=== PATIENT | male | born 1970 | race American Indian/Alaskan Native ===

== ENCOUNTER 2017-08-22 12:13 | Emergency (ER) | payer MEDICARE, MEDICAID ==
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
[2017-08-22] MEDS ORDERED: Sodium Chloride 0.9% 10 ML Syringe FLUSH PRN (12:44)
[2017-08-22] MEDS ORDERED: Ondansetron 4 MG/2 ML SDV IV ONE ×2 (12:45→17:14)
[2017-08-22] MEDS ORDERED: HYDROmorphone 1 MG/ML Syringe IVPUSH ONE (12:45)
[2017-08-22] MEDS ORDERED: Sodium Chloride 0.9% 1,000 ML IV ONE ×3 (12:45→16:08)
[2017-08-22 13:30] LABS: ANION GAP 13.3; CHLORIDE,CL 103 mmol/L (101-111); SODIUM,NA 136 mmol/L (135-145)
[2017-08-22] MEDS ORDERED: Iopamidol 612 MG/ML 100 ML Bottle IVPUSH ONE (14:11)
--- NOTE | 2017-08-22 15:10 | CT ---
CLINICAL HISTORY: 46-year-old hypertensive 260 pound male abdominal pain, vomiting, bilirubin 5.6 and abnormally elevated white blood cell count (24,000) who has had previous appendectomy but no other k nown surgeries. SCAN TECHNIQUE: Volume acquisition of data from the abdomen and pelvis obtained without oral contrast but during the intravenous administration 100 cc nonionic Isovue contrast (2.5 cc/sec via injector) while the patient was lying supine on the Siemens multislice scanner [place], [place]. All data archived in the PACS system for storage, reformatting and study. INTERPRETATION: 1. Portal caval shunt and small scarred appearing liver (irregular margins). Normal spleen. No varice s. 2. Gallbladder unremarkable. No abnormal dilatation of intra or extrahepatic biliary ducts. Normal pa ncreas. 3. No abdominal or pelvic mass lesion, signs of mesenteric or retroperitoneal lymphadenopathy, inflam matory "dirty" peritoneal fat, mechanical bowel obstruction, ascites or free intraperitoneal air. 4. Inhomogeneously dense prostate gland extending in the base of the urinary bladder. 5. Normal reniform size, axis and configuration. No sign of renal cortical mass lesion, nephrolithias is or obstructive uropathy. 6. Normal caliber aortoiliac vessels. Normal cardiac silhouette. Lung bases clear. Lumbar spine unrem arkable. 7. Diverticula scattered along the course of descending left colon (without associated inflammatory c hanges). CONCLUSION: Portacaval shunt. No acute intraperitoneal abnormality. (No biliary duct dilatation or in traperitoneal infection)
[2017-08-22] MEDS ORDERED: cefTRIAXone 1 GM Vial IVPUSH ONE (17:13)
[2017-08-22] MEDS ORDERED: Ketorolac 30 MG/ML SDV IVPUSH ONE (17:14)
[2017-08-22 17:53] VITALS: BP 135/88
== END 2017-08-22 17:52 | disposition home or self-care (01) ==
LOC: DL.ED 12:13
DX: N12 Tubulo-interstitial nephritis, not specified as acute or chronic (principal); E86.0 Dehydration; N40.0 Benign prostatic hyperplasia without lower urinary tract symptoms; K21.9 Gastro-esophageal reflux disease without esophagitis; F17.210 Nicotine dependence, cigarettes, uncomplicated; Z79.899 Other long term (current) drug therapy
CPT/HCPCS: 36415; 74177; 80053; 81001; 82150; 83605; 83690; 85025; 87040; 87086; 87491; 87591; 96361; 96374; 96375; 96376; 99284; J0696; J1170; J1885; J2405; J7030; J7050; Q9967; 87088; 87186

== ENCOUNTER 2018-11-12 20:29 | Emergency (ER) | payer MEDICAID, MEDICARE ==
--- NOTE | 2018-11-12 21:48 | EDM.PDOC ---
ED HPI GENERAL MEDICAL PROBLEM - General Chief Complaint: Respiratory Problem Stated Complaint: BAD COUGH Time Seen by Provider: 11/12/18 22:53 Source of Information: Reports: Patient, RN, RN Notes Reviewed History Limitations: Reports: No Limitations - History of Present Illness INITIAL COMMENTS - FREE TEXT/NARRATIVE: Pt to ER with c/o cough that began yesterday. Pt states pain and burning in the chest with cough. Admits to fever, chills, chest pain with cough, SOB, and states he tires out easily with ambulation that began today. Denies N/V/D. States he has been seeing Shay Ty in the clinic, and has been referred to [facility] for "his lungs". Denies smoking. Admits to alcoholic liver cirrhosis. Onset: Gradual - Related Data Allergies Allergy/AdvReac Type Severity Reaction Status Date / Time No Known Allergies Allergy Verified 06/22/16 07:03 Home Meds: Home Meds Gabapentin [Neurontin] 300 mg PO DAILY 06/22/16 [History] Lactulose 10 gm PO DAILY 06/22/16 [History] Omeprazole 20 mg PO DAILY 06/22/16 [History] Spironolactone [Aldactone] 25 mg PO DAILY 06/22/16 [History] traMADol [Ultram] 50 mg PO DAILY 06/22/16 [History] Albuterol [Ventolin HFA] 18 gm INH Q6H 08/22/17 [History] Past Medical History HEENT History: Reports: Impaired Vision Gastrointestinal History: Reports: Cirrhosis, GERD, Hepatitis Musculoskeletal History: Reports: Back Pain, Chronic Neurological History: Reports: Neuropathy, Peripheral Psychiatric History: Reports: Anxiety Dermatologic History: Reports: Cellulitis - Past Surgical History GI Surgical History: Reports: Appendectomy, Other (See Below) Social & Family History - Family History Family Medical History: Noncontributory - Tobacco Use Smoking Status *Q: Never Smoker - Caffeine Use Caffeine Use: Reports: None - Recreational Drug Use Recreational Drug Use: No - Living Situation & Occupation Living situation: Reports: with Family Occupation: Unemployed ED ROS GENERAL - Review of Systems Review Of Systems: ROS reveals no pertinent complaints other than HPI. ED EXAM, GENERAL - Physical Exam Exam: See Below Exam Limited By: No Limitations General Appearance: Alert, WD/WN, No Apparent Distress Eye Exam: Bilateral Eye: EOMI, Normal Inspection Ears: Normal External Exam, Hearing Grossly Normal Nose: Normal Inspection Throat/Mouth: Normal Inspection, Normal Voice, No Airway Compromise Head: Atraumatic, Normocephalic Neck: Normal Inspection, Supple, Non-Tender, Full Range of Motion Respiratory/Chest: No Respiratory Distress, Decreased Breath Sounds, Wheezing ( Expiratory) Cardiovascular: Normal Peripheral Pulses, Regular Rate, Rhythm, No Edema, No Gallop, No JVD, No Murmur, No Rub Peripheral Pulses: 2+: Radial (L), Radial (R) GI/Abdominal: Normal Bowel Sounds, Soft, Non-Tender (Male) Exam: Deferred Rectal (Males) Exam: Deferred Back Exam: Normal Inspection, Full Range of Motion, NT Extremities: Normal Inspection, Normal Range of Motion, Non-Tender, Normal Capillary Refill, No Pedal Edema Neurological: Alert, Oriented, CN II-XII Intact, Normal Cognition, Normal Gait, Normal Reflexes, No Motor/Sensory Deficits Psychiatric: Normal Affect, Normal Mood Skin Exam: Warm, Dry, Intact, Normal Color, No Rash Lymphatic: No Adenopathy Course - Vital Signs Last Recorded V/S: Last Vital Signs Temp 99.2 F 11/12/18 22:44 Pulse 88 11/12/18 22:44 Resp 18 11/12/18 22:44 BP 142/65 H 11/12/18 22:44 Pulse Ox 94 L 11/12/18 22:44 - Orders/Labs/Meds Orders: Active Orders 24 hr Category Date Time Status EKG Documentation Completion [RC] STAT Care 11/12/18 22:30 Active Peripheral IV Care [RC] . DIRECTED Care 11/12/18 22:30 Active CULTURE BLOOD [BC] Stat Lab 11/12/18 22:40 Received CULTURE BLOOD [BC] Stat Lab 11/12/18 23:00 Results Blood Culture x2 Reflex Set [OM.PC] Stat Oth 11/12/18 22:30 Ordered Peripheral IV Insertion Adult [OM.PC] Stat Oth 11/12/18 22:30 Ordered Labs: Laboratory Tests 11/12/18 11/12/18 11/12/18 Range/Units 22:40 22:40 22:40 WBC 6.1 (5.0-10.0) 10^3/uL RBC 5.58 (4.6-6.2) 10^6/uL Hgb 17.3 (14.0-18.0) g/dL Hct 50.8 (40.0-54.0) % MCV 91.0 (80-100) fL MCH 31.0 (27.0-34.0) pg MCHC 34.1 (33.0-35.0) g/dL Plt Count 78 L (150-450) 10^3/uL Neut % (Auto) 63.3 (42.2-75.2) % Lymph % (Auto) 19.4 L (20.5-50.1) % [facility] % (Auto) 15.7 H (2-8) % Eos % (Auto) 0.8 L (1.0-3.0) % Baso % (Auto) 0.8 (0.0-1.0) % Sodium 136 (135-145) mmol/L Potassium 3.4 L (3.6-5.0) mmol/L Chloride 107 (101-111) mmol/L Carbon Dioxide 18.0 L (21.0-31.0) mmol/L Anion Gap 14.4 BUN 6 L (7-18) mg/dL Creatinine 0.8 (0.6-1.3) mg/dL Est Cr Clr Drug Dosing 137.90 mL/min Estimated GFR (MDRD) > 60 BUN/Creatinine Ratio 7.50 Glucose 113 H (74-105) mg/dL Lactic Acid 1.5 (0.5-2.2) mmol/L Calcium 8.5 (8.4-10.2) mg/dl Total Bilirubin 2.4 H (0.2-1.0) mg/dL AST 39 (10-42) IU/L ALT 21 (10-60) IU/L Alkaline Phosphatase 94 (42-121) IU/L Troponin I 0.02 (0.00-0.02) ng/ml B-Natriuretic Peptide 31 (0-100) pg/ml Total Protein 7.7 (6.7-8.2) g/dl Albumin 3.9 (3.2-5.5) g/dl Globulin 3.8 Albumin/Globulin Ratio 1.03 Meds: Medications Discontinued Medications Generic Name Dose Route Start Last Admin Trade Name Freq PRN Reason Stop Dose Admin Furosemide 40 mg 11/13/18 00:45 11/13/18 00:52 Lasix IVPUSH 11/13/18 00:46 40 mg NOW ONE Administration Iopamidol 75 ml 11/12/18 23:18 11/12/18 23:50 Isovue-300 (61%) IVPUSH 11/12/18 23:19 73 ml ONETIME ONE Administration Sodium Chloride 10 ml 11/12/18 22:30 11/12/18 22:47 Saline Flush FLUSH 10 ml ASDIRECTED PRN Administration Keep Vein Open - Radiology Interpretation Free Text/Narrative:: Chest xray: FINDINGS: Lungs: Unremarkable. No consolidation. Pleural space: Unremarkable. No pleural effusion. No pneumothorax. Heart/Mediastinum: There is fullness in the aortopulmonary window region and mamadou. Bones/joints: Unremarkable. IMPRESSION: Suspect enlarged central arteries. Pulmonary arterial hypertension is suspected. CT of the chest could further characterize as well as exclude adenopathy. Thank you for allowing us to participate in the care of your patient. Dictated and Authenticated by: Salomón Villasenor MD 11/12/2018 9:25 PM Central Time ([place] & [place]) Chest CT: FINDINGS: Lungs: No interstitial infiltrate. No consolidation. No masses. Pleural space: No pneumothorax. No pleural effusion. Heart: Atherosclerotic calcification of of the coronary arteries. No cardiomegaly. No pericardial effusion. Pulmonary arteries: Enlargement of the main pulmonary artery consistent with pulmonary arterial hypertension. Aorta: Normal. No aortic aneurysm. Lymph nodes: Unremarkable. No enlarged lymph nodes. Bones/joints: No acute fracture. Soft tissues: Unremarkable. Liver: Liver cirrhosis with TIPS shunt. IMPRESSION: 1. No acute intrathoracic finding. 2. Pulmonary arterial hypertension. 3. Liver cirrhosis with TIPS shunt. Thank you for allowing us to participate in the care of your patient. Dictated and Authenticated by: Yanelis Macario MD 11/13/2018 12:31 AM Central Time ([place] & [place]) See rad report Departure - Departure Time of Disposition: 00:39 Disposition: Home, Self-Care 01 Condition: Fair Clinical Impression: Pulmonary hypertension, Cough - Discharge Information *PRESCRIPTION DRUG MONITORING PROGRAM REVIEWED*: No *COPY OF PRESCRIPTION DRUG MONITORING REPORT IN PATIENT [place]: No Instructions: Pulmonary Hypertension Referrals: PCP,None [Primary Care Provider] - Forms: ED Department Discharge Additional Instructions: Call your primary care provider in the morning to follow up - My Orders Last 24 Hours: My Active Orders 11/12/18 22:30 EKG Documentation Completion [RC] STAT Peripheral IV Care [RC] . DIRECTED Blood Culture x2 Reflex Set [OM.PC] Stat Peripheral IV Insertion Adult [OM.PC] Stat 11/12/18 22:40 CULTURE BLOOD [BC] Stat 11/12/18 23:00 CULTURE BLOOD [BC] Stat - Assessment/Plan Last 24 Hours: My Active Orders 11/12/18 22:30 EKG Documentation Completion [RC] STAT Peripheral IV Care [RC] . DIRECTED Blood Culture x2 Reflex Set [OM.PC] Stat Peripheral IV Insertion Adult [OM.PC] Stat 11/12/18 22:40 CULTURE BLOOD [BC] Stat 11/12/18 23:00 CULTURE BLOOD [BC] Stat
[2018-11-12] MEDS ORDERED: Sodium Chloride 0.9% 10 ML Syringe FLUSH PRN (22:30)
[2018-11-12 22:45] VITALS: BP 142/65
[2018-11-12 23:13] LABS: ANION GAP 14.4; CHLORIDE,CL 107 mmol/L (101-111); SODIUM,NA 136 mmol/L (135-145)
[2018-11-12] MEDS ORDERED: Iopamidol 612 MG/ML 75 ML Bottle IVPUSH ONE (23:18)
[2018-11-13] MEDS ORDERED: Furosemide 40 MG/4 ML VIAL IVPUSH ONE (00:45)
== END 2018-11-13 00:58 | disposition home or self-care (01) ==
LOC: DL.ED 20:29
DX: I27.20 Pulmonary hypertension, unspecified (principal); R05 Cough; F41.9 Anxiety disorder, unspecified; Z79.899 Other long term (current) drug therapy
CPT/HCPCS: 36415; 71046; 71260; 80053; 83605; 83880; 84484; 85025; 87040; 93005; 96374; 99284; J1940; Q9967

== ENCOUNTER 2020-02-05 16:59 | Emergency (ER) | payer MEDICARE, MEDICAID ==
[2020-02-05 17:12] VITALS: BP 143/75; PULSE 90
--- NOTE | 2020-02-05 17:23 | EDM.PDOC ---
ED HPI GENERAL MEDICAL PROBLEM - General Stated Complaint: UNK Time Seen by Provider: 02/05/20 17:15 Source of Information: Reports: Patient History Limitations: Reports: No Limitations - History of Present Illness INITIAL COMMENTS - FREE TEXT/NARRATIVE: This 49 yo male patient reports to the ED with increased lower abdominal pain and bilateral lower back pain and pressure. The patient described his pain as an increasing pressure throughout his abdomen. The patient reports he has not been able to urinate since about [id number] this morning. The patient was seen in the [facility], but sent to the ED. Onset: Today Onset Date: 02/05/20 Duration: Constant, Getting Worse Location: Reports: Abdomen, Back Quality: Reports: Ache, Pressure Severity: Moderate Improves with: Reports: None Worsens with: Reports: None Context: Reports: Other Associated Symptoms: Reports: No Other Symptoms Bilateral Lower Back Pain Score (Numeric/FACES): 7 - Related Data Allergies Allergy/AdvReac Type Severity Reaction Status Date / Time No Known Allergies Allergy Verified 02/05/20 17:03 Home Meds: Home Meds Gabapentin [Neurontin] 300 mg PO DAILY 06/22/16 [History] Lactulose 10 gm PO DAILY 06/22/16 [History] Omeprazole 20 mg PO DAILY 06/22/16 [History] Spironolactone [Aldactone] 25 mg PO DAILY 06/22/16 [History] Albuterol [Ventolin HFA] 18 gm INH Q6H 08/22/17 [History] Past Medical History HEENT History: Reports: Impaired Vision Gastrointestinal History: Reports: Cirrhosis, GERD, Hepatitis Musculoskeletal History: Reports: Back Pain, Chronic Neurological History: Reports: Neuropathy, Peripheral Psychiatric History: Reports: Anxiety Dermatologic History: Reports: Cellulitis - Past Surgical History GI Surgical History: Reports: Appendectomy, Other (See Below) Social & Family History - Family History Family Medical History: Noncontributory - Caffeine Use Caffeine Use: Reports: None - Living Situation & Occupation Living situation: Reports: with Family Occupation: Unemployed ED ROS GENERAL - Review of Systems Review Of Systems: Comprehensive ROS is negative, except as noted in HPI. ED EXAM, RENAL/ - Physical Exam Exam: See Below Exam Limited By: No Limitations General Appearance: Alert, WD/WN, Moderate Distress Eye Exam: Bilateral Eye: EOMI, Normal Inspection, PERRL Ears: Normal External Exam, Normal Canal, Hearing Grossly Normal, Normal TMs Nose: Normal Inspection, Normal Mucosa, No Blood Throat/Mouth: Normal Inspection, Normal Lips, Normal Teeth, Normal Gums, Normal Oropharynx, Normal Voice, No Airway Compromise Head: Atraumatic, Normocephalic Neck: Normal Inspection, Supple, Non-Tender, Full Range of Motion Respiratory/Chest: No Respiratory Distress, Lungs Clear, Normal Breath Sounds, No Accessory Muscle Use, Chest Non-Tender Cardiovascular: Normal Peripheral Pulses GI/Abdominal: Normal Bowel Sounds, Tender (lower abdomen) (Male) Exam: Deferred Rectal (Males) Exam: Deferred Back Exam: CVA Tenderness (R) Extremities: Normal Inspection, Normal Range of Motion, Non-Tender, Normal Capillary Refill, No Pedal Edema Neurological: Alert, Oriented, CN II-XII Intact, Normal Cognition, Normal Gait, Normal Reflexes, No Motor/Sensory Deficits Psychiatric: Normal Affect, Normal Mood Skin Exam: Warm, Dry, Intact, Normal Color, No Rash Lymphatic: No Adenopathy Course - Vital Signs Last Recorded V/S: Last Vital Signs Temp 37.2 C 02/05/20 17:07 Pulse 90 02/05/20 17:07 Resp 20 02/05/20 17:07 BP 143/75 H 02/05/20 17:07 Pulse Ox 97 02/05/20 17:07 - Orders/Labs/Meds Labs: Laboratory Tests 02/05/20 02/05/20 02/05/20 Range/Units 17:31 17:42 17:42 WBC 9.5 (5.0-10.0) 10^3/uL RBC 5.23 (4.6-6.2) 10^6/uL Hgb 16.6 (14.0-18.0) g/dL Hct 48.7 (40.0-54.0) % MCV 93.1 (80-100) fL MCH 31.7 (27.0-34.0) pg MCHC 34.1 (33.0-35.0) g/dL Plt Count 75 L (150-450) 10^3/uL Neut % (Auto) 84.5 H (42.2-75.2) % Lymph % (Auto) 5.9 L (20.5-50.1) % [place] % (Auto) 9.3 H (2-8) % Eos % (Auto) 0.0 L (1.0-3.0) % Baso % (Auto) 0.3 (0.0-1.0) % Sodium 135 L (136-145) mmol/L Potassium 3.5 (3.5-5.1) mmol/L Chloride 103 (98-107) mmol/L Carbon Dioxide 22 (21-32) mmol/L Anion Gap 13.5 H (7-13) mEq/L BUN 10 (7-18) mg/dL Creatinine 1.02 (0.70-1.30) mg/dL Est Cr Clr Drug Dosing 107.01 mL/min Estimated GFR (MDRD) > 60 BUN/Creatinine Ratio 9.8 (No establ ref range) Glucose 107 H (74-99) mg/dL Calcium 8.3 L (8.5-10.1) mg/dL Total Bilirubin 2.8 H (0.2-1.0) mg/dL AST 29 (15-37) U/L ALT 23 (16-63) U/L Alkaline Phosphatase 92 (46-116) U/L Total Protein 7.2 (6.4-8.2) g/dL Albumin 3.4 (3.4-5.0) g/dL Globulin 3.8 Albumin/Globulin Ratio 0.9 Urine Color Dark yellow (YELLOW) Urine Appearance Cloudy (CLEAR) Urine pH 6.0 (5.0-9.0) Ur Specific [place] 1.025 (1.005-1.030) Urine Protein 30 H (NEGATIVE) Urine Glucose (UA) Negative (NEGATIVE) Urine Ketones 15 H (NEGATIVE) Urine Occult Blood Trace-intact H (NEGATIVE) Urine Nitrite Negative (NEGATIVE) Urine Bilirubin Negative (NEGATIVE) Urine Urobilinogen 4.0 H (0.2-1.0) mg/dL Ur Leukocyte Esterase Negative (NEGATIVE) Urine RBC 5-10 H /HPF Urine WBC 0-5 (0-5/HPF) /HPF Ur Epithelial Cells Few (NOT SEEN) /HPF Amorphous Sediment Few (NOT SEEN) /HPF Urine Bacteria Rare (0-FEW/HPF) /HPF Urine Mucus Moderate H (NOT SEEN) /LPF - Re-Assessments/Exams Free Text/Narrative Re-Assessment/Exam: 02/05/20 18:14 The patient reports symptom relief after catheter. Departure - Departure Time of Disposition: 18:14 Disposition: Home, Self-Care 01 Condition: Fair Clinical Impression: Urinary obstruction - Discharge Information *PRESCRIPTION DRUG MONITORING PROGRAM REVIEWED*: Not Applicable *COPY OF PRESCRIPTION DRUG MONITORING REPORT IN PATIENT [place]: Not Applicable Care Plan Goals: The patient and family were advised of the examination and lab results during the visit. A catheter was placed to relieve pressure with symptom improvement during visit. The patient was encouraged to attempt to urinate every 1-2 hours over the next 24 hours. If the patient has any additional symptoms or concerns, the patient should either return to the emergency department or visit his primary care facility. Sepsis Event Note (ED) - Evaluation Sepsis Screening Result: No Definite Risk - Focused Exam Vital Signs: Vital Signs Temp Pulse Resp BP Pulse Ox 02/05/20 17:07 37.2 C 90 20 143/75 H 97
[2020-02-05 18:12] LABS: ANION GAP 13.5 mEq/L (7-13); CHLORIDE,CL 103 mmol/L (98-107); SODIUM,NA 135 mmol/L (136-145)
== END 2020-02-05 18:20 | disposition home or self-care (01) ==
LOC: DL.ED 16:59
DX: N13.9 Obstructive and reflux uropathy, unspecified (principal); K21.9 Gastro-esophageal reflux disease without esophagitis; G62.9 Polyneuropathy, unspecified; Z79.899 Other long term (current) drug therapy
CPT/HCPCS: 36415; 51702; 80053; 81001; 85025; 99283; 99284

== ENCOUNTER 2020-05-10 20:02 | Emergency (ER) | payer MEDICARE, MEDICAID, OTHER ==
[2020-05-10 20:14] VITALS: BP 125/79; PULSE 99
--- NOTE | 2020-05-10 20:24 | EDM.PDOC ---
ED HPI GENERAL MEDICAL PROBLEM - General Chief Complaint: Respiratory Problem Stated Complaint: AMBULANCE Time Seen by Provider: 05/10/20 20:22 Source of Information: Reports: Patient History Limitations: Reports: No Limitations - History of Present Illness INITIAL COMMENTS - FREE TEXT/NARRATIVE: positive covid 5 days ago, started chest tightness on deep breathing and SOB. Mid-Sternal Chest Pain Score (Numeric/FACES): 3 - Related Data Allergies Allergy/AdvReac Type Severity Reaction Status Date / Time No Known Allergies Allergy Verified 02/05/20 17:03 Home Meds: Home Meds Gabapentin [Neurontin] 300 mg PO DAILY 06/22/16 [History] Lactulose 10 gm PO DAILY 06/22/16 [History] Omeprazole 20 mg PO DAILY 06/22/16 [History] Spironolactone [Aldactone] 25 mg PO DAILY 06/22/16 [History] Albuterol [Ventolin HFA] 18 gm INH Q6H 08/22/17 [History] Past Medical History HEENT History: Reports: Impaired Vision Cardiovascular History: Reports: None Respiratory History: Reports: COPD Gastrointestinal History: Reports: Cirrhosis, GERD, Hepatitis Genitourinary History: Reports: Prostate Disorder Musculoskeletal History: Reports: Back Pain, Chronic Neurological History: Reports: Neuropathy, Peripheral Psychiatric History: Reports: Anxiety Endocrine/Metabolic History: Reports: None Hematologic History: Reports: None Immunologic History: Reports: None Oncologic (Cancer) History: Reports: None Dermatologic History: Reports: Cellulitis - Infectious Disease History Infectious Disease History: Reports: Novel Coronavirus - Past Surgical History Head Surgeries/Procedures: Reports: None GI Surgical History: Reports: Appendectomy, Other (See Below) Social & Family History - Family History Family Medical History: Noncontributory - Tobacco Use Smoking Status *Q: Never Smoker Second Hand Smoke Exposure: No - Caffeine Use Caffeine Use: Reports: None - Recreational Drug Use Recreational Drug Use: No - Living Situation & Occupation Living situation: Reports: with Family Occupation: Unemployed ED ROS GENERAL - Review of Systems Review Of Systems: Comprehensive ROS is negative, except as noted in HPI. ED EXAM, GENERAL - Physical Exam Exam: See Below Exam Limited By: No Limitations General Appearance: Alert, WD/WN, Mild Distress, Other (discomfort) Ears: Hearing Grossly Normal Throat/Mouth: Normal Voice, No Airway Compromise Head: Atraumatic Neck: Non-Tender, Full Range of Motion Respiratory/Chest: No Respiratory Distress Cardiovascular: Regular Rate, Rhythm GI/Abdominal: Soft, Pelvis Stable (Male) Exam: Deferred Rectal (Males) Exam: Deferred Neurological: Alert, Oriented, Normal Cognition, No Motor/Sensory Deficits Psychiatric: Flat Affect Skin Exam: Warm, Dry, Normal Color Lymphatic: No Adenopathy Course - Vital Signs Last Recorded V/S: Last Vital Signs Temp 37.2 C 05/10/20 20:02 Pulse 99 05/10/20 20:02 Resp 18 05/10/20 20:02 BP 125/79 05/10/20 20:02 Pulse Ox - Orders/Labs/Meds Orders: Active Orders 24 hr Category Date Time Status CULTURE BLOOD [BC] Stat Lab 05/10/20 20:35 Received Azithromycin [Zithromax] Med 05/10/20 21:28 Once 500 mg PO ONETIME ONE predniSONE Med 05/10/20 21:28 Once 20 mg PO ONETIME ONE Labs: Laboratory Tests 05/10/20 05/10/20 05/10/20 Range/Units 20:35 20:35 20:35 WBC 7.6 (5.0-10.0) 10^3/uL RBC 5.33 (4.6-6.2) 10^6/uL Hgb 17.1 (14.0-18.0) g/dL Hct 48.3 (40.0-54.0) % MCV 90.6 (80-100) fL MCH 32.1 (27.0-34.0) pg MCHC 35.4 H (33.0-35.0) g/dL Plt Count 36 L* (150-450) 10^3/uL Neut % (Auto) 77.8 H (42.2-75.2) % Lymph % (Auto) 11.5 L (20.5-50.1) % [place] % (Auto) 10.2 H (2-8) % Eos % (Auto) 0.4 L (1.0-3.0) % Baso % (Auto) 0.1 (0.0-1.0) % Sodium 136 (136-145) mmol/L Potassium 3.4 L (3.5-5.1) mmol/L Chloride 103 (98-107) mmol/L Carbon Dioxide 22 (21-32) mmol/L Anion Gap 14.4 H (7-13) mEq/L BUN 7 (7-18) mg/dL Creatinine 0.75 (0.70-1.30) mg/dL Est Cr Clr Drug Dosing 145.53 mL/min Estimated GFR (MDRD) > 60 BUN/Creatinine Ratio 9.3 (No establ ref range) Glucose 89 (74-99) mg/dL Lactic Acid 1.2 (0.4-2.0) mmol/L Calcium 8.0 L (8.5-10.1) mg/dL Total Bilirubin 2.6 H (0.2-1.0) mg/dL AST 54 H (15-37) U/L ALT 43 (16-63) U/L Alkaline Phosphatase 109 (46-116) U/L Troponin I < 0.017 (0.000-0.056) ng/mL Total Protein 6.9 (6.4-8.2) g/dL Albumin 3.1 L (3.4-5.0) g/dL Globulin 3.8 Albumin/Globulin Ratio 0.82 Meds: Medications Discontinued Medications Generic Name Dose Route Start Last Admin Trade Name Freq PRN Reason Stop Dose Admin Azithromycin 500 mg 05/10/20 21:28 Zithromax PO 05/10/20 21:29 ONETIME ONE Prednisone 20 mg 05/10/20 21:28 Prednisone PO 05/10/20 21:29 ONETIME ONE - Re-Assessments/Exams Free Text/Narrative Re-Assessment/Exam: 05/10/20 21:30 results discussed with pt Departure - Departure Time of Disposition: 21:30 Disposition: Home, Self-Care 01 Condition: Good Clinical Impression: COVID-19 Pneumonia Qualifiers: Pneumonia type: due to unspecified organism Laterality: bilateral Lung locati on: unspecified part of lung Qualified Code(s): J18.9 - Pneumonia, unspecified organism - Discharge Information Instructions: COVID-19 Frequently Asked Questions Forms: ED Department Discharge Additional Instructions: 1) self quarantine next 2 weeks 2) take tylenol or motrin as needed for fever 3) follow up at clinic rx given; z-shoshana medrol dospak Sepsis Event Note (ED) - Evaluation Sepsis Screening Result: No Definite Risk - Focused Exam Vital Signs: Vital Signs Temp Pulse Resp BP 05/10/20 20:02 37.2 C 99 18 125/79 - My Orders Last 24 Hours: My Active Orders 05/10/20 20:35 CULTURE BLOOD [BC] Stat 05/10/20 21:28 Azithromycin [Zithromax] 500 mg PO ONETIME ONE predniSONE 20 mg PO ONETIME ONE - Assessment/Plan Last 24 Hours: My Active Orders 05/10/20 20:35 CULTURE BLOOD [BC] Stat 05/10/20 21:28 Azithromycin [Zithromax] 500 mg PO ONETIME ONE predniSONE 20 mg PO ONETIME ONE
[2020-05-10 21:01] LABS: ANION GAP 14.4 mEq/L (7-13); CHLORIDE,CL 103 mmol/L (98-107); SODIUM,NA 136 mmol/L (136-145)
--- NOTE | 2020-05-10 21:19 | CT ---
PROCEDURE INFORMATION: Exam: CT Chest Without Contrast Exam date and time: 05/10/2020 8:35 PM Age: 49 years old Clinical indication: Other: Chest pain; Additional info: Covid positive, SOB chest pain TECHNIQUE: Imaging protocol: Computed tomography of the chest without contrast. Radiation optimization: All CT scans at this facility use at least one of these dose optimization techniques: automated exposure control; mA and/or kV adjustment per patient size (includes targeted exams where dose is matched to clinical indication); or iterative reconstruction. COMPARISON: CT Chest w Cont 11/12/2018 11:34 PM FINDINGS: Lungs: Multifocal bilateral ground-glass densities, some of them peripheral, some of them rounded. Some crazy paving is present. There are no suspicious pulmonary nodules or areas of lung consolidation. Pleural space: There is no significant effusion. No pneumothorax. No mass, plaque or calcification. Heart: There are atherosclerotic calcifications inclusive of the coronary arteries. Pulmonary arteries: There is central prominance of the pulmonary arterial tree consistent with longstanding pulmonary artery hypertension. Aorta: No aortic aneurysm. Lymph nodes: No enlarged axillary, mediastinal, or hilar lymph nodes. Bones/joints: Age appropriate. No acute fracture. No suspicious lytic or osteosclerotic lesions. Soft tissues: Unremarkable. Other findings: TIPS is present. IMPRESSION: 1. Signs of chronic pulmonary artery hypertension. 2. CT findings consistent with given diagnosis of COVID-19 pneumonia.
[2020-05-10] MEDS ORDERED: Azithromycin 250 MG Tab PO ONE (21:28)
[2020-05-10] MEDS ORDERED: predniSONE 20 MG Tab PO ONE (21:28)
== END 2020-05-10 21:40 | disposition home or self-care (01) ==
LOC: DL.ED 20:02
DX: U07.1 COVID-19 (principal); J12.89 Other viral pneumonia; J44.9 Chronic obstructive pulmonary disease, unspecified; K21.9 Gastro-esophageal reflux disease without esophagitis; G62.9 Polyneuropathy, unspecified
CPT/HCPCS: 36415; 71250; 80053; 83605; 84484; 85025; 87040; 99285; A9270; J7512

== ENCOUNTER 2020-05-12 10:03 | Inpatient (IN) | payer MEDICARE, MEDICAID, OTHER ==
[2020-05-12] MEDS ORDERED: Albuterol/Ipratropium 3.0-0.5 MG/3 ML Neb Soln NEB ONE (10:21)
[2020-05-12 11:06] LABS: ANION GAP 14.9 mEq/L (7-13); CHLORIDE,CL 103 mmol/L (98-107); SODIUM,NA 136 mmol/L (136-145)
[2020-05-12] MEDS ORDERED: Ondansetron 4 MG Tab.DIS PO PRN (12:14)
[2020-05-12] MEDS ORDERED: Acetaminophen 325 MG Tab PO PRN (12:14)
[2020-05-12] MEDS ORDERED: Docusate Sodium 100 MG Cap PO PRN (12:14)
[2020-05-12] MEDS ORDERED: Albuterol/Ipratropium 3.0-0.5 MG/3 ML Neb Soln NEB SCH (13:00)
[2020-05-12] MEDS: Sodium Chloride 0.9% 1,000 ML IV SCH (13:44)
[2020-05-12] MEDS: cefTRIAXone 1 GM in Sodium Chloride 0.9% 50 ML IV SCH (13:45)
--- NOTE | 2020-05-12 13:46 | HP ---
CHIEF COMPLAINT: Shortness of breath and hypoxemia. HISTORY OF PRESENT ILLNESS: The patient is a 49-year-old gentleman with past medical history of chronic obstructive pulmonary disease, liver cirrhosis, neuropathy, was admitted through the emergency room because of continued shortness of breath and now noted to be hypoxemic. The patient was diagnosed with COVID infection about a week ago. The patient was seen in the emergency room 2 days ago because of shortness of breath and some chest tightness with deep breathing, and he was ruled out for myocardial infarction and was noted to have COVID pneumonia, but oxygen saturation was still above 90, so he was discharged on Zithromax and prednisone, but the patient continued to have the shortness of breath. Now, the patient is a little bit hypoxemic with saturation in the 80s. Because of this, he was then admitted for further evaluation and management. The patient denies though any fever or chills, orthopnea, pedal edema, abdominal pain, headache, nor any other complaints. PAST MEDICAL HISTORY: Remarkable for neuropathy, liver cirrhosis, chronic obstructive pulmonary disease, thrombocytopenia, and anxiety. FAMILY HISTORY: Noncontributory. SOCIAL HISTORY: The patient is unemployed. 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 FAMILY HISTORY: Noncontributory. REVIEW OF SYSTEMS: As in HPI. The rest of the review of systems is negative. HOME MEDICATIONS: Gabapentin, lactulose, omeprazole, spironolactone, albuterol. ALLERGIES: No known drug allergies. PHYSICAL EXAMINATION: General: The patient is alert and oriented, very pleasant, not in any acute respiratory distress. Vital Signs: Blood pressure is 126/83, pulse of 102, respirations of 28, temperature of 98.4, saturation is 88% on 3 L per nasal cannula. SHEENT: Normocephalic. There is pink palpebral conjunctiva. Sclerae slightly icterus. NECK: No JVD. No lymphadenopathy. HEART: Regular rate and rhythm. No gallops. No rubs. LUNGS: Has coarse breath sounds bilaterally with diminished breath sounds on both bases, but no significant wheezing or crackles. ABDOMEN: Moderately obese, soft, nontender. Bowel sounds positive. EXTREMITIES: Negative for any pedal edema. No calf tenderness. LABORATORY DATA: CBC: WBC is 8.5, hemoglobin is 7.3, hematocrit is 48.4, platelets 49, neutrophils is 84, bands 1. D-dimer is 264, which is within normal limits. Comp panel, anion gap is 14.9, glucose is 111, total bilirubin of 2.8, AST of 51. The rest of the panel unremarkable. CAT scan of the chest that was done on May 10, 2020, showed ground glass density bilaterally compatible with COVID pneumonia. ADMITTING DIAGNOSES: 1. COVID pneumonia. 2. Chronic obstructive pulmonary disease. 3. Liver cirrhosis. 4. Thrombocytopenia. 5. Anxiety. TREATMENT PLAN: The patient is going to be admitted to acute care and COVID isolation room. He will be empirically given IV antibiotics. He will be given IV Remdesivir and dexamethasone and bronchodilators. The rest of the management as necessary, and the patient is a full code. [facility] /[id number]
[2020-05-12] MEDS: LORazepam 0.5 MG Tab PO PRN ×2 (13:49→22:49)
[2020-05-12] MEDS: methylPREDNISolone Sodium Succinate 40 MG/1 ML SDV IVPUSH SCH ×2 (14:42→22:51)
[2020-05-12] MEDS: Azithromycin 500 MG in Sodium Chloride 0.9% 250 ML IV SCH (14:42)
[2020-05-12] MEDS: Albuterol 6.7 GM Inhaler INH SCH ×2 (14:44→17:24)
[2020-05-12] MEDS: Budesonide 0.5 MG/2 ML Neb Susp NEB SCH (17:24)
[2020-05-13] MEDS: Albuterol 6.7 GM Inhaler INH SCH ×4 (00:58→17:51)
[2020-05-13] MEDS: Omeprazole 20 MG Cap.CR PO SCH (05:22)
[2020-05-13] MEDS: methylPREDNISolone Sodium Succinate 40 MG/1 ML SDV IVPUSH SCH ×2 (05:23→14:33)
[2020-05-13] MEDS: Sodium Chloride 0.9% 1,000 ML IV SCH ×2 (05:26→19:59)
[2020-05-13 06:54] LABS: ANION GAP 12.6 mEq/L (7-13); CHLORIDE,CL 105 mmol/L (98-107); SODIUM,NA 138 mmol/L (136-145)
[2020-05-13] MEDS: Budesonide 0.5 MG/2 ML Neb Susp NEB SCH ×2 (08:30→17:51)
[2020-05-13] MEDS: Spironolactone 25 MG Tab PO SCH (08:31)
[2020-05-13] MEDS: Lactulose Soln 10 GM/15 ML 30 ML UD Cup PO SCH (08:32)
[2020-05-13] MEDS: Gabapentin 300 MG Cap PO SCH (08:36)
[2020-05-13] MEDS: cefTRIAXone 1 GM in Sodium Chloride 0.9% 50 ML IV SCH (13:44)
[2020-05-13] MEDS: Azithromycin 500 MG in Sodium Chloride 0.9% 250 ML IV SCH (14:27)
--- NOTE | 2020-05-13 17:28 | EDM.PDOC ---
ED HPI GENERAL MEDICAL PROBLEM - General Chief Complaint: Respiratory Problem Stated Complaint: COVID SYMPTOMS Time Seen by Provider: 05/12/20 10:45 Source of Information: Reports: Patient, RN, RN Notes Reviewed History Limitations: Reports: No Limitations - History of Present Illness INITIAL COMMENTS - FREE TEXT/NARRATIVE: Patient presents to the ER with complaint of positive COVID. States he tested positive and hsa been worsening. States he hsa been taking prednisone, antibiotics and Albuterol inhaler but hsa been becoming more short of breath. His 02 sats are 86-88%. He had a chest CT on Monday. Onset: Gradual Duration: Getting Worse Location: Reports: Chest Severity: Severe Improves with: Reports: None Worsens with: Reports: None Associated Symptoms: Reports: No Other Symptoms Treatments [employer]: Reports: Other Medication(s) (prednisone, antibiotics and Albuterol inhaler) Headache Pain Score (Numeric/FACES): 4 - Related Data Allergies Allergy/AdvReac Type Severity Reaction Status Date / Time No Known Allergies Allergy Verified 05/12/20 12:31 Home Meds: Home Meds Omeprazole 20 mg PO DAILY 06/22/16 [History] Spironolactone [Aldactone] 25 mg PO DAILY 06/22/16 [History] Albuterol [Ventolin HFA] 2 puff INH Q6H PRN 08/22/17 [History] Azithromycin 250 mg PO DAILY 05/12/20 [History] Budesonide/Formoterol [Symbicort 160-4.5 MCG] 2 puff INH BID PRN 05/12/20 [History] Rifaximin [Xifaxan] 550 mg PO BID 05/12/20 [History] predniSONE [Prednisone] 4 mg PO ASDIRECTED 05/12/20 [History] Past Medical History HEENT History: Reports: Impaired Vision Other HEENT History: wears glasses Cardiovascular History: Reports: None Respiratory History: Reports: COPD Gastrointestinal History: Reports: Cirrhosis, GERD, Hepatitis Genitourinary History: Reports: Prostate Disorder Musculoskeletal History: Reports: Back Pain, Chronic Neurological History: Reports: Neuropathy, Peripheral Psychiatric History: Reports: Anxiety Endocrine/Metabolic History: Reports: None Hematologic History: Reports: Blood Transfusion(s) Immunologic History: Reports: None Oncologic (Cancer) History: Reports: None Dermatologic History: Reports: Cellulitis - Infectious Disease History Infectious Disease History: Reports: None - Past Surgical History Head Surgeries/Procedures: Reports: None GI Surgical History: Reports: Appendectomy, Other (See Below) Male Surgical History: Reports: None Social & Family History - Family History Family Medical History: Noncontributory - Tobacco Use Smoking Status *Q: Former Smoker Used Tobacco, but Quit: Yes Month/Year Tobacco Last Used: 2014 - Caffeine Use Caffeine Use: Reports: None - Recreational Drug Use Recreational Drug Use: No - Living Situation & Occupation Living situation: Reports: with Family Occupation: Unemployed ED ROS GENERAL - Review of Systems Review Of Systems: Comprehensive ROS is negative, except as noted in HPI. ED EXAM, GENERAL - Physical Exam Exam: See Below Exam Limited By: No Limitations General Appearance: Mild Distress Eye Exam: Bilateral Eye: EOMI, Normal Inspection, PERRL Ears: Normal External Exam, Normal Canal, Hearing Grossly Normal, Normal TMs Nose: Normal Inspection, Normal Mucosa, No Blood Throat/Mouth: Normal Inspection, Normal Lips, Normal Teeth, Normal Gums, Normal Oropharynx, Normal Voice, No Airway Compromise Head: Atraumatic, Normocephalic Neck: Normal Inspection, Supple, Non-Tender, Full Range of Motion Respiratory/Chest: Decreased Breath Sounds, Crackles (bases bilateral) Cardiovascular: Normal Peripheral Pulses, Regular Rate, Rhythm, No Edema, No Gallop, No JVD, No Murmur, No Rub GI/Abdominal: Normal Bowel Sounds, Soft, Non-Tender, No Organomegaly, No Distention, No Abnormal Bruit, No Mass (Male) Exam: Deferred Rectal (Males) Exam: Deferred Back Exam: Normal Inspection, Full Range of Motion, NT Extremities: Normal Inspection, Normal Range of Motion, Non-Tender, Normal Capillary Refill, No Pedal Edema Neurological: Alert, Oriented, CN II-XII Intact, Normal Cognition, Normal Gait, Normal Reflexes, No Motor/Sensory Deficits Psychiatric: Normal Affect, Normal Mood Skin Exam: Warm, Dry, Intact, Normal Color, No Rash Lymphatic: No Adenopathy Course - Vital Signs Last Recorded V/S: Last Vital Signs Temp 98.5 F 05/14/20 04:00 Pulse 88 05/14/20 07:00 Resp 28 H 05/14/20 04:00 BP 108/68 05/14/20 04:00 Pulse Ox 92 L 05/14/20 07:00 - Orders/Labs/Meds Orders: Medication Orders Acetaminophen (Tylenol) 650 mg PO Q4H PRN PRN Reason: Pain (Mild 1-3)/fever Albuterol (Proventil Hfa) 0 gm INH 0100,0700,1300,1800 [facility] Admin: 05/14/20 07:35 Dose: 2 puff Documented by: Admin: 05/14/20 00:25 Dose: 2 puff Documented by: Admin: 05/13/20 17:51 Dose: 2 puff Documented by: Admin: 05/13/20 13:44 Dose: 2 puff Documented by: Admin: 05/13/20 08:30 Dose: 2 puff Documented by: Admin: 05/13/20 00:58 Dose: 2 puff Documented by: Admin: 05/12/20 17:24 Dose: 2 puff Documented by: Admin: 05/12/20 14:44 Dose: 2 puff Documented by: KRISTEN Budesonide (Pulmicort) 0.5 mg NEB BIDRT [facility] Admin: 05/14/20 07:35 Dose: 0.5 mg Documented by: Admin: 05/13/20 17:51 Dose: 0.5 mg Documented by: Admin: 05/13/20 08:30 Dose: 0.5 mg Documented by: Admin: 05/12/20 17:24 Dose: 0.5 mg Documented by: KRISTEN Dexamethasone (Dexamethasone) 6 mg IV DAILY [facility] Docusate Sodium (Colace) 100 mg PO BID PRN PRN Reason: Constipation Gabapentin (Neurontin) 300 mg PO DAILY [facility] Admin: 05/13/20 08:36 Dose: 300 mg Documented by: MARQUITA Sodium Chloride (Normal Saline) 1,000 mls @ 75 mls/hr IV ASDIRECTED [facility] Admin: 05/13/20 19:59 Dose: 75 mls/hr Documented by: Infusion: 05/13/20 18:46 Dose: 75 mls/hr Documented by: Admin: 05/13/20 05:26 Dose: 75 mls/hr Documented by: Infusion: 05/13/20 03:04 Dose: 75 mls/hr Documented by: Admin: 05/12/20 13:44 Dose: 75 mls/hr Documented by: KRISTEN Ceftriaxone Sodium 1 gm/ (Sodium Chloride) 50 mls @ 100 mls/hr IV Q24H [facility] Last Infusion: 05/13/20 14:20 Dose: 100 mls/hr Documented by: Admin: 05/13/20 13:44 Dose: 100 mls/hr Documented by: Infusion: 05/12/20 14:15 Dose: 100 mls/hr Documented by: Admin: 05/12/20 13:45 Dose: 100 mls/hr Documented by: KRISTEN Azithromycin 500 mg/ Sodium (Chloride) 250 mls @ 250 mls/hr IV Q24H [facility] Last Infusion: 05/13/20 15:30 Dose: 250 mls/hr Documented by: Infusion: 05/13/20 15:20 Dose: 250 mls/hr Documented by: Admin: 05/13/20 14:27 Dose: 250 mls/hr Documented by: Infusion: 05/12/20 15:42 Dose: 250 mls/hr Documented by: Admin: 05/12/20 14:42 Dose: 250 mls/hr Documented by: KRISTEN Remdesivir 100 mg/ Sodium (Chloride) 230 mls @ 230 mls/hr IV Q24H [facility] Last Infusion: 05/13/20 17:30 Dose: 230 mls/hr Documented by: Admin: 05/13/20 16:28 Dose: 230 mls/hr Documented by: MARQUITA Ibuprofen (Motrin) 600 mg PO Q8H PRN PRN Reason: Pain Last Admin: 05/13/20 22:55 Dose: 600 mg Documented by: PRIMO Lactulose (Cephulac) 10 gm PO DAILY [facility] Last Admin: 05/13/20 08:32 Dose: 10 gm Documented by: MARQUITA Lorazepam (Ativan) 0.5 mg PO BID PRN PRN Reason: Anxiety Last Admin: 05/13/20 19:58 Dose: 0.5 mg Documented by: Admin: 05/12/20 22:49 Dose: 0.5 mg Documented by: Admin: 05/12/20 13:49 Dose: 0.5 mg Documented by: [id number] Omeprazole (Omeprazole) 20 mg PO ACBRK [facility] Last Admin: 05/14/20 05:36 Dose: 20 mg Documented by: Admin: 05/13/20 05:22 Dose: 20 mg Documented by: PRIMO Ondansetron HCl (Zofran Odt) 4 mg PO Q4H PRN PRN Reason: nausea, able to take PO Spironolactone (Aldactone) 25 mg PO DAILY [facility] Last Admin: 05/13/20 08:31 Dose: 25 mg Documented by: MARQUITA Labs: Laboratory Tests 05/12/20 05/12/20 05/12/20 Range/Units 10:18 10:18 10:18 WBC 8.5 (5.0-10.0) 10^3/uL RBC 5.35 (4.6-6.2) 10^6/uL Hgb 17.3 (14.0-18.0) g/dL Hct 48.4 (40.0-54.0) % MCV 90.5 (80-100) fL MCH 32.3 (27.0-34.0) pg MCHC 35.7 H (33.0-35.0) g/dL Plt Count 49 L (150-450) 10^3/uL Neut % (Auto) 76.7 H (42.2-75.2) % Lymph % (Auto) 8.2 L (20.5-50.1) % [place] % (Auto) 15.1 H (2-8) % Eos % (Auto) 0.0 L (1.0-3.0) % Baso % (Auto) 0.0 (0.0-1.0) % Add Manual Diff Yes Neutrophils % (Manual) 84 H (42-75) % Band Neutrophils % 1 % Lymphocytes % (Manual) 5 L (20-50) % Atypical Lymphs % 6 % Monocytes % (Manual) 4 (2-8) % Plt Morphology Comment See note D-Dimer, Quantitative 264 (0-400) ng/mL Sodium 136 (136-145) mmol/L Potassium 3.9 (3.5-5.1) mmol/L Chloride 103 (98-107) mmol/L Carbon Dioxide 22 (21-32) mmol/L Anion Gap 14.9 H (7-13) mEq/L BUN 7 (7-18) mg/dL Creatinine 0.73 (0.70-1.30) mg/dL Est Cr Clr Drug Dosing 149.51 mL/min Estimated GFR (MDRD) > 60 BUN/Creatinine Ratio 9.6 (No establ ref range) Glucose 111 H (74-99) mg/dL Lactic Acid (0.4-2.0) mmol/L Calcium 8.6 (8.5-10.1) mg/dL Total Bilirubin 2.8 H (0.2-1.0) mg/dL AST 51 H (15-37) U/L ALT 41 (16-63) U/L Alkaline Phosphatase 105 (46-116) U/L Troponin I < 0.017 (0.000-0.056) ng/mL B-Natriuretic Peptide 41 (0-100) pg/ml Total Protein 7.4 (6.4-8.2) g/dL Albumin 3.1 L (3.4-5.0) g/dL Globulin 4.3 Albumin/Globulin Ratio 0.72 09/22/20 Range/Units 10:18 WBC (5.0-10.0) 10^3/uL RBC (4.6-6.2) 10^6/uL Hgb (14.0-18.0) g/dL Hct (40.0-54.0) % MCV (80-100) fL MCH (27.0-34.0) pg MCHC (33.0-35.0) g/dL Plt Count (150-450) 10^3/uL Neut % (Auto) (42.2-75.2) % Lymph % (Auto) (20.5-50.1) % [place] % (Auto) (2-8) % Eos % (Auto) (1.0-3.0) % Baso % (Auto) (0.0-1.0) % Add Manual Diff Neutrophils % (Manual) (42-75) % Band Neutrophils % % Lymphocytes % (Manual) (20-50) % Atypical Lymphs % % Monocytes % (Manual) (2-8) % Plt Morphology Comment D-Dimer, Quantitative (0-400) ng/mL Sodium (136-145) mmol/L Potassium (3.5-5.1) mmol/L Chloride (98-107) mmol/L Carbon Dioxide (21-32) mmol/L Anion Gap (7-13) mEq/L BUN (7-18) mg/dL Creatinine (0.70-1.30) mg/dL Est Cr Clr Drug Dosing mL/min Estimated GFR (MDRD) BUN/Creatinine Ratio (No establ ref range) Glucose (74-99) mg/dL Lactic Acid 1.7 (0.4-2.0) mmol/L Calcium (8.5-10.1) mg/dL Total Bilirubin (0.2-1.0) mg/dL AST (15-37) U/L ALT (16-63) U/L Alkaline Phosphatase (46-116) U/L Troponin I (0.000-0.056) ng/mL B-Natriuretic Peptide (0-100) pg/ml Total Protein (6.4-8.2) g/dL Albumin (3.4-5.0) g/dL Globulin Albumin/Globulin Ratio Meds: Medications Generic Name Dose Route Start Last Admin Trade Name Freq PRN Reason Stop Dose Admin Acetaminophen 650 mg 05/12/20 12:14 Tylenol PO Q4H PRN Pain (Mild 1-3)/fever Albuterol 0 gm 05/12/20 13:45 05/14/20 07:35 Proventil Hfa INH 2 puff 0100,0700,1300,1800 [facility] Administration Budesonide 0.5 mg 05/12/20 18:00 05/14/20 07:35 Pulmicort NEB 0.5 mg BIDRT [facility] Administration Dexamethasone 6 mg 05/14/20 09:00 Dexamethasone IV DAILY [facility] Docusate Sodium 100 mg 05/12/20 12:14 Colace PO BID PRN Constipation Gabapentin 300 mg 05/13/20 09:00 05/13/20 08:36 Neurontin PO 300 mg DAILY [facility] Administration Sodium Chloride 1,000 mls @ 75 mls/hr 05/12/20 12:15 05/13/20 19:59 Normal Saline IV 75 mls/hr ASDIRECTED [facility] Administration Ceftriaxone Sodium 1 gm/ 50 mls @ 100 mls/hr 05/12/20 13:30 05/13/20 14:20 Sodium Chloride IV Infused Q24H [facility] Infusion Azithromycin 500 mg/ Sodium 250 mls @ 250 mls/hr 05/12/20 14:00 05/13/20 15:30 Chloride IV Infused Q24H [facility] Infusion Remdesivir 100 mg/ Sodium 230 mls @ 230 mls/hr 05/13/20 16:00 05/13/20 17:30 Chloride IV Infused Q24H [facility] Infusion Ibuprofen 600 mg 05/13/20 20:09 05/13/20 22:55 Motrin PO 600 mg Q8H PRN Administration Pain Lactulose 10 gm 05/13/20 09:00 05/13/20 08:32 Cephulac PO 10 gm DAILY [facility] Administration Lorazepam 0.5 mg 05/12/20 13:18 05/13/20 19:58 Ativan PO 0.5 mg BID PRN Administration Anxiety Omeprazole 20 mg 05/13/20 06:00 05/14/20 05:36 Omeprazole PO 20 mg ACBRK [facility] Administration Ondansetron HCl 4 mg 05/12/20 12:14 Zofran Odt PO Q4H PRN nausea, able to take PO Spironolactone 25 mg 05/13/20 09:00 05/13/20 08:31 Aldactone PO 25 mg DAILY [facility] Administration Discontinued Medications Generic Name Dose Route Start Last Admin Trade Name Shanq PRN Reason Stop Dose Admin Albuterol/Ipratropium 3 ml 05/12/20 10:21 05/12/20 10:33 Duoneb 3.0-0.5 Mg/3 Ml NEB 05/12/20 10:22 3 ml ONETIME ONE Administration Albuterol/Ipratropium 3 ml 05/12/20 13:00 05/12/20 14:32 Duoneb 3.0-0.5 Mg/3 Ml NEB Not Given Q6HRRT [facility] Remdesivir 200 mg/ Sodium 210 mls @ 210 mls/hr 05/12/20 15:00 05/12/20 17:26 Chloride IV 05/12/20 15:59 210 mls/hr ONETIME ONE Administration Methylprednisolone Sodium Succinate 40 mg 05/12/20 14:00 05/13/20 14:33 Solu-Medrol IVPUSH 40 mg Q8HR [facility] Administration - Re-Assessments/Exams Free Text/Narrative Re-Assessment/Exam: 05/14/20 08:24 Discussed patient case with Dr. Vasquez who agreed to accept the patient for inpatient admission. Departure - Departure Time of Disposition: 11:38 Disposition: Admitted As Inpatient 68 Condition: Fair Clinical Impression: Pneumonia due to COVID-19 virus - Discharge Information *PRESCRIPTION DRUG MONITORING PROGRAM REVIEWED*: No *COPY OF PRESCRIPTION DRUG MONITORING REPORT IN PATIENT [place]: No Sepsis Event Note (ED) - Evaluation Sepsis Screening Result: No Definite Risk
--- NOTE | 2020-05-13 18:38 | PCM.PN ---
- General Info Date of Service: 05/13/20 Subjective Update: Patient seen and examined today. Still coughing and short of breath and requiring a 2 L oxygen. Denies chest pain. Functional Status: Reports: Pain Controlled - Review of Systems General: Reports: No Symptoms HEENT: Reports: Headaches Pulmonary: Reports: Shortness of Breath, Cough Cardiovascular: Reports: No Symptoms Gastrointestinal: Reports: No Symptoms Genitourinary: Reports: No Symptoms Musculoskeletal: Reports: No Symptoms Skin: Reports: No Symptoms - Patient Data Vitals - Most Recent: Last Vital Signs Temp 98.8 F 05/13/20 16:00 Pulse 96 05/13/20 18:00 Resp 20 05/13/20 16:00 BP 112/66 05/13/20 16:00 Pulse Ox 92 L 05/13/20 18:00 Weight - Most Recent: 243 lb 9.6 oz I&O - Last 24 Hours: Intake & Output 05/13/20 05/13/20 05/13/20 06:59 14:59 22:59 Intake Total 790 2060 486 Output Total 350 1000 Balance 440 1060 486 Lab Results Last 24 Hours: Laboratory Results - last 24 hr 05/13/20 05/13/20 Range/Units 06:27 06:27 WBC 10.6 H (5.0-10.0) 10^3/uL RBC 5.05 (4.6-6.2) 10^6/uL Hgb 16.0 (14.0-18.0) g/dL Hct 47.0 (40.0-54.0) % MCV 93.1 (80-100) fL MCH 31.7 (27.0-34.0) pg MCHC 34.0 (33.0-35.0) g/dL Plt Count 49 L (150-450) 10^3/uL Neut % (Auto) 85.8 H (42.2-75.2) % Lymph % (Auto) 7.2 L (20.5-50.1) % [place] % (Auto) 6.9 (2-8) % Eos % (Auto) 0.0 L (1.0-3.0) % Baso % (Auto) 0.1 (0.0-1.0) % Add Manual Diff Sodium 138 (136-145) mmol/L Potassium 4.6 (3.5-5.1) mmol/L Chloride 105 (98-107) mmol/L Carbon Dioxide 25 (21-32) mmol/L Anion Gap 12.6 (7-13) mEq/L BUN 8 (7-18) mg/dL Creatinine 0.78 (0.70-1.30) mg/dL Est Cr Clr Drug Dosing 139.93 mL/min Estimated GFR (MDRD) > 60 Glucose 115 H (74-99) mg/dL Calcium 8.3 L (8.5-10.1) mg/dL Bob Results Last 24 Hours: Microbiology 05/12/20 10:18 Aerobic Blood Culture - Preliminary Blood - Venous NO GROWTH AFTER 1 DAY Anaerobic Blood Culture - Preliminary NO GROWTH AFTER 1 DAY Med Orders - Current: Current Medications Acetaminophen (Tylenol) 650 mg PO Q4H PRN PRN Reason: Pain (Mild 1-3)/fever Albuterol (Proventil Hfa) 0 gm INH 0100,0700,1300,1800 [facility] Last Admin: 05/13/20 17:51 Dose: 2 puff Documented by: Budesonide (Pulmicort) 0.5 mg NEB BIDRT [facility] Last Admin: 05/13/20 17:51 Dose: 0.5 mg Documented by: Dexamethasone (Dexamethasone) 6 mg IV DAILY [facility] Docusate Sodium (Colace) 100 mg PO BID PRN PRN Reason: Constipation Gabapentin (Neurontin) 300 mg PO DAILY [facility] Last Admin: 05/13/20 08:36 Dose: 300 mg Documented by: Sodium Chloride (Normal Saline) 1,000 mls @ 75 mls/hr IV ASDIRECTED [facility] Last Admin: 05/13/20 05:26 Dose: 75 mls/hr Documented by: Ceftriaxone Sodium 1 gm/ (Sodium Chloride) 50 mls @ 100 mls/hr IV Q24H [facility] Last Infusion: 05/13/20 14:20 Dose: Infused Documented by: Azithromycin 500 mg/ Sodium (Chloride) 250 mls @ 250 mls/hr IV Q24H [facility] Last Infusion: 05/13/20 15:30 Dose: Infused Documented by: Remdesivir 100 mg/ Sodium (Chloride) 230 mls @ 230 mls/hr IV Q24H [facility] Last Infusion: 05/13/20 17:30 Dose: Infused Documented by: Lactulose (Cephulac) 10 gm PO DAILY [facility] Last Admin: 05/13/20 08:32 Dose: 10 gm Documented by: Lorazepam (Ativan) 0.5 mg PO BID PRN PRN Reason: Anxiety Last Admin: 05/12/20 22:49 Dose: 0.5 mg Documented by: Omeprazole (Omeprazole) 20 mg PO ACBRK [facility] Last Admin: 05/13/20 05:22 Dose: 20 mg Documented by: Ondansetron HCl (Zofran Odt) 4 mg PO Q4H PRN PRN Reason: nausea, able to take PO Spironolactone (Aldactone) 25 mg PO DAILY [facility] Last Admin: 05/13/20 08:31 Dose: 25 mg Documented by: Discontinued Medications Albuterol/Ipratropium (Duoneb 3.0-0.5 Mg/3 Ml) 3 ml NEB ONETIME ONE Stop: 05/12/20 10:22 Last Admin: 05/12/20 10:33 Dose: 3 ml Documented by: Albuterol/Ipratropium (Duoneb 3.0-0.5 Mg/3 Ml) 3 ml NEB Q6HRRT [facility] Last Admin: 05/12/20 14:32 Dose: Not Given Documented by: Remdesivir 200 mg/ Sodium (Chloride) 210 mls @ 210 mls/hr IV ONETIME ONE Stop: 05/12/20 15:59 Last Admin: 05/12/20 17:26 Dose: 210 mls/hr Documented by: Methylprednisolone Sodium Succinate (Solu-Medrol) 40 mg IVPUSH Q8HR [facility] Last Admin: 05/13/20 14:33 Dose: 40 mg Documented by: - Exam Quality Assessment: Supplemental Oxygen General: Alert, Oriented HEENT: Pupils Equal, Pupils Reactive, EOMI, Mucous Membr. Moist/[place] Neck: Supple Lungs: Normal Respiratory Effort, Rhonchi Cardiovascular: Regular Rate, Regular Rhythm GI/Abdominal Exam: Normal Bowel Sounds, Soft, Non-Tender, No Organomegaly, No Distention, No Abnormal Bruit, No Mass, Pelvis Stable Back Exam: Normal Inspection, Full Range of Motion Extremities: Normal Inspection, Normal Range of Motion, Non-Tender, No Pedal Edema, Normal Capillary Refill Skin: Warm, Dry, Intact Neurological: No New Focal Deficit Psy/Mental Status: Alert, Normal Affect, Normal Mood Sepsis Event Note - Evaluation Sepsis Screening Result: No Definite Risk - Focused Exam Vital Signs: Vital Signs Temp Pulse Resp BP Pulse Ox Pulse Ox 05/13/20 18:00 96 92 L 05/13/20 16:00 98.8 F 96 20 112/66 92 L 05/13/20 12:15 90 L 05/13/20 12:00 98.8 F 88 22 H 112/62 91 L 05/13/20 08:00 99.1 F 80 22 H 104/64 90 L 05/13/20 07:00 95 94 L - Problem List Review Problem List Initiated/Reviewed/Updated: Yes - My Orders Last 24 Hours: My Active Orders 05/14/20 09:00 dexAMETHasone [Dexamethasone] 6 mg IV DAILY - Plan Plan:: COVID-19 associated pneumonia Acute hypoxic respiratory failure Probable bacterial pneumonia Continue Remdesevir, switch Solu-Medrol to Decadron Continue antibiotics Obtain LDH, procalcitonin, d-dimer, troponin, ferritin tomorrow COPD Continue home inhalers/nebs Hepatic cirrhosis Stable Monitor LFTs Thrombocytopenia Blood count stable but low Anxiety Continue home medication
[2020-05-13] MEDS: LORazepam 0.5 MG Tab PO PRN (19:58)
[2020-05-13] MEDS: Ibuprofen 600 MG Tab PO PRN (22:55)
[2020-05-14] MEDS: Albuterol 6.7 GM Inhaler INH SCH ×3 (00:25→12:32)
[2020-05-14] MEDS: Omeprazole 20 MG Cap.CR PO SCH (05:36)
[2020-05-14 07:21] LABS: ANION GAP 11.9 mEq/L (7-13); CHLORIDE,CL 106 mmol/L (98-107); SODIUM,NA 138 mmol/L (136-145)
[2020-05-14] MEDS: Budesonide 0.5 MG/2 ML Neb Susp NEB SCH ×2 (07:35→18:24)
[2020-05-14] MEDS: Lactulose Soln 10 GM/15 ML 30 ML UD Cup PO SCH (08:34)
[2020-05-14] MEDS: Spironolactone 25 MG Tab PO SCH (08:34)
[2020-05-14] MEDS: Gabapentin 300 MG Cap PO SCH (08:34)
[2020-05-14] MEDS: Dexamethasone 4 MG/ML SDV IV SCH (08:36)
[2020-05-14] MEDS: Sodium Chloride 0.65% Nasal Spray 45 ML Bottle NAS PRN ×3 (10:21→15:41)
[2020-05-14] MEDS: LORazepam 0.5 MG Tab PO PRN ×2 (10:22→20:29)
[2020-05-14] MEDS ORDERED: Lactulose Soln 10 GM/15 ML 30 ML UD Cup PO PRN (10:51)
[2020-05-14] MEDS ORDERED: Albuterol 6.7 GM Inhaler INH PRN (13:30)
[2020-05-14] MEDS: cefTRIAXone 1 GM in Sodium Chloride 0.9% 50 ML IV SCH (13:35)
[2020-05-14] MEDS: Azithromycin 500 MG in Sodium Chloride 0.9% 250 ML IV SCH (14:11)
[2020-05-14] MEDS: Ibuprofen 600 MG Tab PO PRN (20:28)
[2020-05-14] MEDS: Rifaximin 550 MG Tab PO SCH (20:36)
[2020-05-15] MEDS: Omeprazole 20 MG Cap.CR PO SCH (05:42)
[2020-05-15 07:36] LABS: ANION GAP 11.4 mEq/L (7-13); CHLORIDE,CL 107 mmol/L (98-107); SODIUM,NA 139 mmol/L (136-145)
[2020-05-15] MEDS: Spironolactone 25 MG Tab PO SCH (08:59)
[2020-05-15] MEDS: Rifaximin 550 MG Tab PO SCH (09:00)
[2020-05-15] MEDS: Gabapentin 300 MG Cap PO SCH (09:00)
[2020-05-15] MEDS: Dexamethasone 4 MG/ML SDV IV SCH (09:02)
[2020-05-15] MEDS: Budesonide 0.5 MG/2 ML Neb Susp NEB SCH (10:52)
[2020-05-15] MEDS ORDERED: Furosemide 20 MG/2 ML VIAL IVPUSH ONE (11:00)
--- NOTE | 2020-05-15 11:35 | PCM.DCSUM1 ---
Discharge Summary - Hospital Course Free Text/Narrative:: Patient is a 49-year-old male with a history of hepatic cirrhosis and COPD who presented with shortness of breath diarrhea 1 week after being diagnosed with COVID-19 infection. Patient was hypoxic and required up to 2 L of oxygen by nasal cannula. He was started on Decadron, Remdesevir, ceftriaxone and azithromycin. Patient was no started on anticoagulation because of his severe thrombocytopenia. Last night patient became more hypoxic and was put on high flow nasal cannula at 55% FiO2. Chest x-ray this morning showed worsening bilateral pulmonary opacities consistent with worsening pneumonia. He is d- dimer also doubled from 1160 to 2160 in the past 24 hours. He is currently being transfused with convalescent plasma. Patient is to be transferred to or through hospital for further management. Discharge diagnosis COVID-19 associated pneumonia Acute hypoxic respiratory failure Probable bacterial pneumonia COPD Hepatic cirrhosis Thrombocytopenia Anxiety Diagnosis: Stroke: No - Discharge Data Discharge Date: 05/15/20 Discharge Disposition: DC/Tfer to Acute Hospital 02 Condition: Fair - Referral to Home Health Primary Care Physician: Shay Ty NP - Discharge Plan *PRESCRIPTION DRUG MONITORING PROGRAM REVIEWED*: Not Applicable *COPY OF PRESCRIPTION DRUG MONITORING REPORT IN PATIENT [place]: Not Applicable Home Medications: Home Meds Omeprazole 20 mg PO DAILY 06/22/16 [History] Spironolactone [Aldactone] 25 mg PO DAILY 06/22/16 [History] Albuterol [Ventolin HFA] 2 puff INH Q6H PRN 08/22/17 [History] Budesonide/Formoterol [Symbicort 160-4.5 MCG] 2 puff INH BID 05/12/20 [History] Rifaximin [Xifaxan] 550 mg PO BID 05/12/20 [History] Acetaminophen [Tylenol] 650 mg PO Q4H PRN tablet 05/15/20 [Rx] Oxygen Therapy Mode: High Flow Nasal Cannula FiO2: 55 Forms: ED Department Discharge Referrals: PCP,Unobtain [Ordering Only Provider] - - Discharge Summary/Plan Comment DC Time >30 min.: Yes - General Info Date of Service: 05/15/20 Admission Dx/Problem (Free Text: COVID-19 associated pneumonia Subjective Update: Patient seen and examined today. Had worsening hypoxia overnight and is now on high flow nasal cannula at 55% FiO2. Transfuse with convalescent plasma. Functional Status: Reports: Pain Controlled - Review of Systems General: Reports: Weakness HEENT: Reports: No Symptoms Pulmonary: Reports: Shortness of Breath, Cough, Sputum Cardiovascular: Reports: No Symptoms Gastrointestinal: Reports: Diarrhea Genitourinary: Reports: No Symptoms Musculoskeletal: Reports: No Symptoms Skin: Reports: No Symptoms Neurological: Reports: No Symptoms Psychiatric: Reports: No Symptoms - Patient Data Vitals - Most Recent: Last Vital Signs Temp 98.7 F 05/15/20 10:50 Pulse 78 05/15/20 10:50 Resp 20 05/15/20 10:50 BP 113/69 05/15/20 10:50 Pulse Ox 92 L 05/15/20 10:27 Weight - Most Recent: 243 lb 9.6 oz I&O - Last 24 hours: Intake & Output 05/14/20 05/15/20 05/15/20 22:59 06:59 14:59 Intake Total 360 500 0 Balance 360 500 0 Lab Results - Last 24 hrs: Laboratory Results - last 24 hr 05/14/20 05/15/20 05/15/20 Range/Units 06:15 06:55 06:55 WBC 12.0 H (5.0-10.0) 10^3/uL RBC 4.71 (4.6-6.2) 10^6/uL Hgb 15.2 (14.0-18.0) g/dL Hct 44.2 (40.0-54.0) % MCV 93.8 (80-100) fL MCH 32.3 (27.0-34.0) pg MCHC 34.4 (33.0-35.0) g/dL Plt Count 63 L (150-450) 10^3/uL Neut % (Auto) 83.9 H (42.2-75.2) % Lymph % (Auto) 7.8 L (20.5-50.1) % [place] % (Auto) 8.0 (2-8) % Eos % (Auto) 0.2 L (1.0-3.0) % Baso % (Auto) 0.1 (0.0-1.0) % Add Manual Diff Manager Sas D-Dimer, Quantitative 2160 H (0-400) ng/mL Sodium (136-145) mmol/L Potassium (3.5-5.1) mmol/L Chloride (98-107) mmol/L Carbon Dioxide (21-32) mmol/L Anion Gap (7-13) mEq/L BUN (7-18) mg/dL Creatinine (0.70-1.30) mg/dL Est Cr Clr Drug Dosing mL/min Estimated GFR (MDRD) BUN/Creatinine Ratio (No establ ref range) Glucose (74-99) mg/dL Calcium (8.5-10.1) mg/dL Ferritin (26-388) mg/mL Total Bilirubin (0.2-1.0) mg/dL AST (15-37) U/L ALT (16-63) U/L Alkaline Phosphatase (46-116) U/L Lactate Dehydrogenase (85-227) U/L Troponin I (0.000-0.056) ng/mL Total Protein (6.4-8.2) g/dL Albumin (3.4-5.0) g/dL Globulin Albumin/Globulin Ratio Procalcitonin <0.05 (<0.10) ng/mL 05/15/20 05/15/20 Range/Units 06:55 06:55 WBC (5.0-10.0) 10^3/uL RBC (4.6-6.2) 10^6/uL Hgb (14.0-18.0) g/dL Hct (40.0-54.0) % MCV (80-100) fL MCH (27.0-34.0) pg MCHC (33.0-35.0) g/dL Plt Count (150-450) 10^3/uL Neut % (Auto) (42.2-75.2) % Lymph % (Auto) (20.5-50.1) % [place] % (Auto) (2-8) % Eos % (Auto) (1.0-3.0) % Baso % (Auto) (0.0-1.0) % Add Manual Diff D-Dimer, Quantitative (0-400) ng/mL Sodium 139 (136-145) mmol/L Potassium 4.4 (3.5-5.1) mmol/L Chloride 107 (98-107) mmol/L Carbon Dioxide 25 (21-32) mmol/L Anion Gap 11.4 (7-13) mEq/L BUN 12 (7-18) mg/dL Creatinine 0.81 (0.70-1.30) mg/dL Est Cr Clr Drug Dosing 134.75 mL/min Estimated GFR (MDRD) > 60 BUN/Creatinine Ratio 14.8 (No establ ref range) Glucose 82 (74-99) mg/dL Calcium 8.2 L (8.5-10.1) mg/dL Ferritin 487 H (26-388) mg/mL Total Bilirubin 2.2 H (0.2-1.0) mg/dL AST 38 H (15-37) U/L ALT 46 (16-63) U/L Alkaline Phosphatase 84 (46-116) U/L Lactate Dehydrogenase 532 H (85-227) U/L Troponin I < 0.017 (0.000-0.056) ng/mL Total Protein 6.1 L (6.4-8.2) g/dL Albumin 2.5 L (3.4-5.0) g/dL Globulin 3.6 Albumin/Globulin Ratio 0.69 Procalcitonin (<0.10) ng/mL [place] Results - Last 24 hrs: Microbiology 05/12/20 10:18 Aerobic Blood Culture - Preliminary Blood - Venous NO GROWTH AFTER 3 DAYS Anaerobic Blood Culture - Preliminary NO GROWTH AFTER 3 DAYS Med Orders - Current: Current Medications Acetaminophen (Tylenol) 650 mg PO Q4H PRN PRN Reason: Pain (Mild 1-3)/fever Albuterol (Proventil Hfa) 0 gm INH Q6H PRN PRN Reason: Wheezing Last Admin: 05/14/20 18:23 Dose: 2 spray Documented by: Dexamethasone (Dexamethasone) 6 mg IV DAILY [facility] Last Admin: 05/15/20 09:02 Dose: 6 mg Documented by: Docusate Sodium (Colace) 100 mg PO BID PRN PRN Reason: Constipation Gabapentin (Neurontin) 300 mg PO DAILY [facility] Last Admin: 05/15/20 09:00 Dose: 300 mg Documented by: Ceftriaxone Sodium 1 gm/ (Sodium Chloride) 50 mls @ 100 mls/hr IV Q24H [facility] Last Admin: 05/14/20 13:35 Dose: 100 mls/hr Documented by: Azithromycin 500 mg/ Sodium (Chloride) 250 mls @ 250 mls/hr IV Q24H [facility] Last Admin: 05/14/20 14:11 Dose: 250 mls/hr Documented by: Remdesivir 100 mg/ Sodium (Chloride) 230 mls @ 230 mls/hr IV Q24H [facility] Stop: 05/16/20 16:59 Last Admin: 05/14/20 15:37 Dose: 230 mls/hr Documented by: Ibuprofen (Motrin) 600 mg PO Q8H PRN PRN Reason: Pain Last Admin: 05/14/20 20:28 Dose: 600 mg Documented by: Lactulose (Cephulac) 10 gm PO DAILY PRN PRN Reason: Constipation Lorazepam (Ativan) 0.5 mg PO BID PRN PRN Reason: Anxiety Last Admin: 05/14/20 20:29 Dose: 0.5 mg Documented by: Mometasone Furoate/Formoterol Fumar (Dulera 100-5 Mcg) 2 puff IH BIDRT [facility] Omeprazole (Omeprazole) 20 mg PO ACBRK [facility] Last Admin: 05/15/20 05:42 Dose: 20 mg Documented by: Ondansetron HCl (Zofran Odt) 4 mg PO Q4H PRN PRN Reason: nausea, able to take PO Rifaximin (Xifaxan) 550 mg PO BID [facility] Last Admin: 05/15/20 09:00 Dose: 550 mg Documented by: Sodium Chloride ([place] Nasal [place]) 1 ml ROSALIE Q2H PRN PRN Reason: Congestion Last Admin: 05/14/20 15:41 Dose: 2 spray Documented by: Spironolactone (Aldactone) 25 mg PO DAILY [facility] Last Admin: 05/15/20 08:59 Dose: 25 mg Documented by: Discontinued Medications Albuterol (Proventil Hfa) 0 gm INH 0100,0700,1300,1800 [facility] Last Admin: 05/14/20 12:32 Dose: 2 puff Documented by: Albuterol/Ipratropium (Duoneb 3.0-0.5 Mg/3 Ml) 3 ml NEB ONETIME ONE Stop: 05/12/20 10:22 Last Admin: 05/12/20 10:33 Dose: 3 ml Documented by: Albuterol/Ipratropium (Duoneb 3.0-0.5 Mg/3 Ml) 3 ml NEB Q6HRRT [facility] Last Admin: 05/12/20 14:32 Dose: Not Given Documented by: Budesonide (Pulmicort) 0.5 mg NEB BIDRT [facility] Last Admin: 05/15/20 10:52 Dose: Not Given Documented by: Furosemide (Lasix) 20 mg IVPUSH NOW ONE Stop: 05/15/20 11:01 Last Admin: 05/15/20 10:54 Dose: 20 mg Documented by: Sodium Chloride (Normal Saline) 1,000 mls @ 75 mls/hr IV ASDIRECTED [facility] Last Admin: 05/13/20 19:59 Dose: 75 mls/hr Documented by: Remdesivir 200 mg/ Sodium (Chloride) 210 mls @ 210 mls/hr IV ONETIME ONE Stop: 05/12/20 15:59 Last Admin: 05/12/20 17:26 Dose: 210 mls/hr Documented by: Lactulose (Cephulac) 10 gm PO DAILY [facility] Last Admin: 05/14/20 08:34 Dose: Not Given Documented by: Methylprednisolone Sodium Succinate (Solu-Medrol) 40 mg IVPUSH Q8HR [facility] Last Admin: 05/13/20 14:33 Dose: 40 mg Documented by: - Exam General: Reports: Alert, Oriented HEENT: Reports: Pupils Equal, Pupils Reactive, EOMI, Mucous Membr. Moist/[place] Neck: Reports: Supple Lungs: Reports: Crackles Cardiovascular: Reports: Regular Rate, Regular Rhythm GI/Abdominal Exam: Normal Bowel Sounds, Soft, Non-Tender, No Organomegaly, No Distention, No Abnormal Bruit, No Mass, Pelvis Stable Back Exam: Reports: Normal Inspection, Full Range of Motion Extremities: Normal Inspection, Normal Range of Motion, Non-Tender, No Pedal Edema, Normal Capillary Refill Skin: Reports: Warm, Dry, Intact Neurological: Reports: No New Focal Deficit Psy/Mental Status: Reports: Alert, Normal Affect, Normal Mood *Q Meaningful Use (DIS) - VTE *Q VTE Pharmacological Contraindications *Q: Risk of Bleeding (Patient has severe thrombocytopenia)
[2020-05-15] MEDS: Ibuprofen 600 MG Tab PO PRN (11:42)
[2020-05-15 11:54] VITALS: BP 123/75; PULSE 87
--- NOTE | 2020-05-15 13:35 | CR ---
EXAMINATION: Chest 1V Frontal SEX: Male AGE: 49 years CLINICAL HISTORY: 49-year-old male reported with chronic pulmonary artery hypertension reported to be "COVID positive" 10 May 2020 (abnormal CT). Now Shortness of breath (SOB). COMPARISON: CXR 12 November 2018. INTERPRETATION: Abnormal. 1. Normal cardiac silhouette (size and configuration) but reproducible large proximal pulmonary artery segments as noted on 12 November 2018 comparison exam. 2. Multilobar pneumonic consolidation (right upper lobe, right perihilar, RLL, lingula and left upper lobes) as noted on CT 10 May 2020 and consistent with diagnosis COVID-19 infection. No improvement. 3. No underlying hilar/mediastinal lymphadenopathy, new lobar atelectasis/collapse, or pleural effusion. 4. No pneumothorax or pneumomediastinum.
[2020-05-15] MEDS ORDERED: Formoterol/Mometasone 100-5 MCG 8.8 GM Inhaler IH SCH (18:00)
--- NOTE | 2020-05-19 17:32 | PCM.PN ---
- General Info Date of Service: 05/14/20 Admission Dx/Problem (Free Text): COVID-19 associated pneumonia Subjective Update: Patient seen and examined today. Had worsening hypoxia not improving. Functional Status: Reports: Pain Controlled - Review of Systems General: Reports: Weakness HEENT: Reports: No Symptoms Pulmonary: Reports: Shortness of Breath, Cough Cardiovascular: Reports: No Symptoms Gastrointestinal: Reports: Diarrhea Genitourinary: Reports: No Symptoms Musculoskeletal: Reports: No Symptoms Skin: Reports: No Symptoms Neurological: Reports: No Symptoms Psychiatric: Reports: No Symptoms - Patient Data Vitals - Most Recent: Last Vital Signs Temp 98.9 F 05/15/20 10:54 Pulse 87 05/15/20 10:54 Resp 20 05/15/20 10:54 BP 123/75 05/15/20 10:54 Pulse Ox 92 L 05/15/20 10:27 Weight - Most Recent: 243 lb 9.6 oz Med Orders - Current: Current Medications Discontinued Medications Acetaminophen (Tylenol) 650 mg PO Q4H PRN PRN Reason: Pain (Mild 1-3)/fever Albuterol (Proventil Hfa) 0 gm INH 0100,0700,1300,1800 [facility] Last Admin: 05/14/20 12:32 Dose: 2 puff Documented by: Albuterol (Proventil Hfa) 0 gm INH Q6H PRN PRN Reason: Wheezing Last Admin: 05/14/20 18:23 Dose: 2 spray Documented by: Albuterol/Ipratropium (Duoneb 3.0-0.5 Mg/3 Ml) 3 ml NEB ONETIME ONE Stop: 05/12/20 10:22 Last Admin: 05/12/20 10:33 Dose: 3 ml Documented by: Albuterol/Ipratropium (Duoneb 3.0-0.5 Mg/3 Ml) 3 ml NEB Q6HRRT [facility] Last Admin: 05/12/20 14:32 Dose: Not Given Documented by: Budesonide (Pulmicort) 0.5 mg NEB BIDRT [facility] Last Admin: 05/15/20 10:52 Dose: Not Given Documented by: Dexamethasone (Dexamethasone) 6 mg IV DAILY [facility] Last Admin: 05/15/20 09:02 Dose: 6 mg Documented by: Docusate Sodium (Colace) 100 mg PO BID PRN PRN Reason: Constipation Furosemide (Lasix) 20 mg IVPUSH NOW ONE Stop: 05/15/20 11:01 Last Admin: 05/15/20 10:54 Dose: 20 mg Documented by: Gabapentin (Neurontin) 300 mg PO DAILY [facility] Last Admin: 05/15/20 09:00 Dose: 300 mg Documented by: Sodium Chloride (Normal Saline) 1,000 mls @ 75 mls/hr IV ASDIRECTED [facility] Last Admin: 05/13/20 19:59 Dose: 75 mls/hr Documented by: Ceftriaxone Sodium 1 gm/ (Sodium Chloride) 50 mls @ 100 mls/hr IV Q24H [facility] Last Admin: 05/14/20 13:35 Dose: 100 mls/hr Documented by: Azithromycin 500 mg/ Sodium (Chloride) 250 mls @ 250 mls/hr IV Q24H [facility] Last Admin: 05/14/20 14:11 Dose: 250 mls/hr Documented by: Remdesivir 200 mg/ Sodium (Chloride) 210 mls @ 210 mls/hr IV ONETIME ONE Stop: 05/12/20 15:59 Last Admin: 05/12/20 17:26 Dose: 210 mls/hr Documented by: Remdesivir 100 mg/ Sodium (Chloride) 230 mls @ 230 mls/hr IV Q24H [facility] Stop: 05/16/20 16:59 Last Admin: 05/14/20 15:37 Dose: 230 mls/hr Documented by: Ibuprofen (Motrin) 600 mg PO Q8H PRN PRN Reason: Pain Last Admin: 05/15/20 11:42 Dose: 600 mg Documented by: Lactulose (Cephulac) 10 gm PO DAILY [facility] Last Admin: 05/14/20 08:34 Dose: Not Given Documented by: Lactulose (Cephulac) 10 gm PO DAILY PRN PRN Reason: Constipation Lorazepam (Ativan) 0.5 mg PO BID PRN PRN Reason: Anxiety Last Admin: 05/14/20 20:29 Dose: 0.5 mg Documented by: Methylprednisolone Sodium Succinate (Solu-Medrol) 40 mg IVPUSH Q8HR [facility] Last Admin: 05/13/20 14:33 Dose: 40 mg Documented by: Mometasone Furoate/Formoterol Fumar (Dulera 100-5 Mcg) 2 puff IH BIDRT [facility] Omeprazole (Omeprazole) 20 mg PO ACBRK [facility] Last Admin: 05/15/20 05:42 Dose: 20 mg Documented by: Ondansetron HCl (Zofran Odt) 4 mg PO Q4H PRN PRN Reason: nausea, able to take PO Rifaximin (Xifaxan) 550 mg PO BID [facility] Last Admin: 05/15/20 09:00 Dose: 550 mg Documented by: Sodium Chloride ([place] Nasal [place]) 1 ml ROSALIE Q2H PRN PRN Reason: Congestion Last Admin: 05/14/20 15:41 Dose: 2 spray Documented by: Spironolactone (Aldactone) 25 mg PO DAILY [facility] Last Admin: 05/15/20 08:59 Dose: 25 mg Documented by: - Exam Quality Assessment: Supplemental Oxygen General: Alert, Oriented HEENT: Pupils Equal, Pupils Reactive, EOMI, Mucous Membr. Moist/[place] Neck: Supple Cardiovascular: Regular Rate, Regular Rhythm GI/Abdominal Exam: Normal Bowel Sounds, Soft, Non-Tender, No Organomegaly, No Distention, No Abnormal Bruit, No Mass, Pelvis Stable Back Exam: Normal Inspection, Full Range of Motion Extremities: Normal Inspection, Normal Range of Motion, Non-Tender, No Pedal Edema, Normal Capillary Refill Skin: Warm, Dry, Intact Neurological: No New Focal Deficit Psy/Mental Status: Alert, Normal Affect, Normal Mood Sepsis Event Note - Evaluation Sepsis Screening Result: No Definite Risk - Problem List Review Problem List Initiated/Reviewed/Updated: Yes - Plan Plan:: COVID-19 associated pneumonia Acute hypoxic respiratory failure Probable bacterial pneumonia Continue Remdesevir, switch Solu-Medrol to Decadron Continue antibiotics Obtain LDH, procalcitonin, d-dimer, troponin, ferritin Consider convalescent plasma transfusion COPD Continue home inhalers/nebs Hepatic cirrhosis Stable Monitor LFTs Thrombocytopenia Blood count stable but low Anxiety Continue home medication
== END 2020-05-15 12:05 | DRG 177 ==
LOC: DL.ED 10:03 → DL.MS 11:37
PROVIDERS: ADMIT Internal Medicine; ATTEND Internal Medicine
PROC: XW033E5 Introduction of Remdesivir Anti-infective into Peripheral Vein, Percutaneous Approach, New Technology Group 5 (ICD-10-PCS; principal; 2020-05-12)
PROC: 8E0ZXY6 Isolation (ICD-10-PCS; 2020-05-12)
PROC: XW033E5 Introduction of Remdesivir Anti-infective into Peripheral Vein, Percutaneous Approach, New Technology Group 5 (ICD-10-PCS; 2020-05-13)
PROC: XW13325 Transfusion of Convalescent Plasma (Nonautologous) into Peripheral Vein, Percutaneous Approach, New Technology Group 5 (ICD-10-PCS; 2020-05-15)
DX: U07.1 COVID-19 (principal); J12.89 Other viral pneumonia; J96.01 Acute respiratory failure with hypoxia; J44.0 Chronic obstructive pulmonary disease with (acute) lower respiratory infection; D69.6 Thrombocytopenia, unspecified; F41.9 Anxiety disorder, unspecified; H54.7 Unspecified visual loss; K21.9 Gastro-esophageal reflux disease without esophagitis; G89.29 Other chronic pain; M54.9 Dorsalgia, unspecified; N42.9 Disorder of prostate, unspecified; G62.9 Polyneuropathy, unspecified; R41.9 Unspecified symptoms and signs involving cognitive functions and awareness; Z98.890 Other specified postprocedural states; K74.60 Unspecified cirrhosis of liver; K75.9 Inflammatory liver disease, unspecified; Z87.891 Personal history of nicotine dependence; Z79.51 Long term (current) use of inhaled steroids; Z79.52 Long term (current) use of systemic steroids; Z79.899 Other long term (current) drug therapy
CPT/HCPCS: 36415; 36430; 71045; 80048; 80053; 82728; 83605; 83615; 83880; 84145; 84484; 85025; 85379; 87040; 93005; 94640; 94660; 94760; 99284; 99285-25; A9270-GY; J0456; J0696; J1100; J1940; J2920; J7030; J7050; J7620-GY; P9017

== ENCOUNTER 2020-10-24 22:08 | Emergency (ER) | payer MEDICARE, MEDICAID ==
[2020-10-24 22:32] VITALS: BP 140/81; PULSE 73
--- NOTE | 2020-10-24 23:53 | CR ---
PROCEDURE INFORMATION: Exam: XR Abdomen Exam date and time: 10/24/2020 11:39 PM Age: 50 years old Clinical indication: Other: Pain; Additional info: Gas pain TECHNIQUE: Imaging protocol: XR of the abdomen. Views: Frontal supine view of the abdomen. 1 View. COMPARISON: CT Abdomen Pelvis wo Cont 02/06/2020 4:19 PM FINDINGS: Lungs: Lung bases appear grossly clear. Gastrointestinal tract: Bowel gas pattern is nonobstructive. There is severe constipation. Intraperitoneal space: Portosystemic shunt projects in the right upper quadrant. No large pneumoperitoneum. Bones/joints: No acute skeletal abnormality or aggressive osseous lesion. IMPRESSION: Severe constipation. No acute findings otherwise seen.
--- NOTE | 2020-10-24 23:57 | EDM.PDOC ---
ED HPI GENERAL MEDICAL PROBLEM - General Chief Complaint: General Stated Complaint: CHEST PAINS Time Seen by Provider: 10/24/20 22:30 Source of Information: Reports: Patient, Family History Limitations: Reports: No Limitations - History of Present Illness INITIAL COMMENTS - FREE TEXT/NARRATIVE: ED with c/o LUQ pain started tonight after eating . No nausea or vomiting. [place] like if could have BM would help. Last yesterday. Admits lactose intolerant and ate lare piece of carrot cake tonight. Pain better now than at onset. no nasea, no fever. no chest pain. Left Thoracic Pain Score (Numeric/FACES): 7 - Related Data Allergies Allergy/AdvReac Type Severity Reaction Status Date / Time No Known Allergies Allergy Verified 10/24/20 22:32 Home Meds: Home Meds Omeprazole 20 mg PO DAILY 06/22/16 [History] Spironolactone [Aldactone] 25 mg PO DAILY 06/22/16 [History] Albuterol [Ventolin HFA] 2 puff INH Q6H PRN 08/22/17 [History] Budesonide/Formoterol [Symbicort 160-4.5 MCG] 2 puff INH BID 05/12/20 [History] Rifaximin [Xifaxan] 550 mg PO BID 05/12/20 [History] Acetaminophen [Tylenol] 650 mg PO Q4H PRN tablet 05/15/20 [Rx] Past Medical History HEENT History: Reports: Impaired Vision Other HEENT History: wears glasses Cardiovascular History: Reports: None Respiratory History: Reports: COPD Gastrointestinal History: Reports: Cirrhosis, GERD, Hepatitis Genitourinary History: Reports: Prostate Disorder Musculoskeletal History: Reports: Back Pain, Chronic Neurological History: Reports: Neuropathy, Peripheral Psychiatric History: Reports: Anxiety Endocrine/Metabolic History: Reports: None Hematologic History: Reports: Blood Transfusion(s) Immunologic History: Reports: None Oncologic (Cancer) History: Reports: None Dermatologic History: Reports: Cellulitis - Infectious Disease History Infectious Disease History: Reports: None - Past Surgical History Head Surgeries/Procedures: Reports: None GI Surgical History: Reports: Appendectomy, Other (See Below) Other GI Surgeries/Procedures: stent in the liver Male Surgical History: Reports: None Social & Family History - Family History Family Medical History: No Pertinent Family History - Tobacco Use Tobacco Use Status *Q: Never Tobacco User Second Hand Smoke Exposure: No - Caffeine Use Caffeine Use: Reports: None - Recreational Drug Use Recreational Drug Use: Yes Drug Use in Last 12 Months: Yes Recreational Drug Type: Reports: Marijuana/Hashish - Living Situation & Occupation Living situation: Reports: with Family Occupation: Unemployed ED ROS GENERAL - Review of Systems Review Of Systems: Comprehensive ROS is negative, except as noted in HPI. ED EXAM, GENERAL - Physical Exam Exam: See Below Exam Limited By: No Limitations General Appearance: Alert, No Apparent Distress Eye Exam: Bilateral Eye: EOMI Ears: Normal External Exam Nose: Normal Inspection Throat/Mouth: Normal Inspection Neck: Normal Inspection Respiratory/Chest: No Respiratory Distress Cardiovascular: Normal Peripheral Pulses, Regular Rate, Rhythm GI/Abdominal: No Distention, Abnormal Bowel Sounds (hyper active LUQ). No: Guarding, Rebound, Tender Extremities: Normal Inspection Neurological: Alert, Oriented, Normal Cognition Psychiatric: Normal Affect Skin Exam: Warm, Dry, Intact Course - Vital Signs Last Recorded V/S: Last Vital Signs Temp 97.8 F 10/24/20 22:22 Pulse 73 10/24/20 22:22 Resp 18 10/24/20 22:22 BP 140/81 10/24/20 22:22 Pulse Ox 95 10/24/20 22:22 Departure - Departure Time of Disposition: 23:55 Disposition: Home, Self-Care 01 Condition: Good Clinical Impression: Abdominal pain Qualifiers: Abdominal location: left upper quadrant Qualified Code(s): R10.12 - Left upper quadrant pain - Discharge Information *PRESCRIPTION DRUG MONITORING PROGRAM REVIEWED*: No *COPY OF PRESCRIPTION DRUG MONITORING REPORT IN PATIENT [place]: No Instructions: Abdominal Pain, Adult, [id number] Forms: ED Department Discharge Additional Instructions: avoid foods containing lactose light diet [place] as tolerated follow up fever chills vomiting Sepsis Event Note (ED) - Evaluation Sepsis Screening Result: No Definite Risk - Focused Exam Vital Signs: Vital Signs Temp Pulse Resp BP Pulse Ox 10/24/20 22:22 97.8 F 73 18 140/81 95
== END 2020-10-25 00:04 | disposition home or self-care (01) ==
LOC: DL.ED 22:08
DX: R10.12 Left upper quadrant pain (principal); J44.9 Chronic obstructive pulmonary disease, unspecified; K21.9 Gastro-esophageal reflux disease without esophagitis; G62.9 Polyneuropathy, unspecified
CPT/HCPCS: 74018; 99282; 99284

== ENCOUNTER 2021-01-14 11:36 | Emergency (ER) | payer MEDICARE, MEDICAID ==
[2021-01-14 12:31] VITALS: BP 137/87; PULSE 86
[2021-01-14 13:08] LABS: ANION GAP 14.9 mEq/L (7-13); CHLORIDE,CL 103 mmol/L (98-107); SODIUM,NA 139 mmol/L (136-145)
--- NOTE | 2021-01-14 13:29 | EDM.PDOC ---
ED HPI GENERAL MEDICAL PROBLEM - General Chief Complaint: Chest Pain Stated Complaint: SIDE OF CHEST FEEL LIKE MUSCLE [id number] Time Seen by Provider: 01/14/21 13:00 Source of Information: Reports: Patient History Limitations: Reports: No Limitations - History of Present Illness INITIAL COMMENTS - FREE TEXT/NARRATIVE: This 50 yo male patient reports to the ED due to feeling like he is having muscle spasms in his chest wall. The patient was started on Lasix yesterday by his primary care facility and is on antibiotics for a bronchitis. The patient reports his symptoms started after he took Lasix this morning. Onset: Today Duration: Hour(s): Location: Reports: Chest Quality: Reports: Other Severity: Moderate Improves with: Reports: None Worsens with: Reports: None Context: Reports: Other Associated Symptoms: Reports: Cough Bilateral Lower Flank Pain Score (Numeric/FACES): 8 - Related Data Allergies Allergy/AdvReac Type Severity Reaction Status Date / Time No Known Allergies Allergy Verified 10/24/20 22:32 Home Meds: Home Meds Omeprazole 20 mg PO DAILY 06/22/16 [History] Spironolactone [Aldactone] 25 mg PO DAILY 06/22/16 [History] Albuterol [Ventolin HFA] 2 puff INH Q6H PRN 08/22/17 [History] Budesonide/Formoterol [Symbicort 160-4.5 MCG] 2 puff INH BID 05/12/20 [History] Rifaximin [Xifaxan] 550 mg PO BID 05/12/20 [History] Acetaminophen [Tylenol] 650 mg PO Q4H PRN tablet 05/15/20 [Rx] Past Medical History HEENT History: Reports: Impaired Vision Other HEENT History: wears glasses Cardiovascular History: Reports: None Respiratory History: Reports: COPD Gastrointestinal History: Reports: Cirrhosis, GERD, Hepatitis Genitourinary History: Reports: Prostate Disorder Musculoskeletal History: Reports: Back Pain, Chronic Neurological History: Reports: Neuropathy, Peripheral Psychiatric History: Reports: Anxiety Endocrine/Metabolic History: Reports: None Hematologic History: Reports: Blood Transfusion(s) Immunologic History: Reports: None Oncologic (Cancer) History: Reports: None Dermatologic History: Reports: Cellulitis - Infectious Disease History Infectious Disease History: Reports: None - Past Surgical History Head Surgeries/Procedures: Reports: None HEENT Surgical History: Reports: None GI Surgical History: Reports: Appendectomy, Other (See Below) Other GI Surgeries/Procedures: Liver stent Male Surgical History: Reports: None Social & Family History - Family History Family Medical History: No Pertinent Family History - Tobacco Use Tobacco Use Status *Q: Never Tobacco User - Caffeine Use Caffeine Use: Reports: Coffee - Recreational Drug Use Recreational Drug Use: No - Living Situation & Occupation Living situation: Reports: with Family Occupation: Unemployed ED ROS GENERAL - Review of Systems Review Of Systems: Comprehensive ROS is negative, except as noted in HPI. ED EXAM, GENERAL - Physical Exam Exam: See Below Exam Limited By: No Limitations General Appearance: Alert, WD/WN, No Apparent Distress Eye Exam: Bilateral Eye: EOMI, Normal Inspection, PERRL Ears: Normal External Exam, Normal Canal, Hearing Grossly Normal, Normal TMs Nose: Normal Inspection, Normal Mucosa, No Blood Throat/Mouth: Normal Inspection, Normal Lips, Normal Teeth, Normal Gums, Normal Oropharynx, Normal Voice, No Airway Compromise Head: Atraumatic, Normocephalic Neck: Normal Inspection, Supple, Non-Tender, Full Range of Motion Respiratory/Chest: No Respiratory Distress, Lungs Clear, Normal Breath Sounds, No Accessory Muscle Use, Chest Non-Tender Cardiovascular: Normal Peripheral Pulses, Regular Rate, Rhythm, No Edema, No Gallop, No JVD, No Murmur, No Rub GI/Abdominal: Normal Bowel Sounds, Soft, Non-Tender, No Organomegaly, No Distention, No Abnormal Bruit, No Mass (Male) Exam: Deferred Rectal (Males) Exam: Deferred Back Exam: Normal Inspection, Full Range of Motion, NT Extremities: Normal Inspection, Normal Range of Motion, Non-Tender, Normal Capillary Refill, No Pedal Edema Neurological: Alert, Oriented, CN II-XII Intact, Normal Cognition, Normal Gait, Normal Reflexes, No Motor/Sensory Deficits Psychiatric: Normal Affect, Normal Mood Skin Exam: Warm, Dry, Intact, Normal Color, No Rash Lymphatic: No Adenopathy #1 Interpretation EKG Date: 01/14/21 Time: 11:53 Rhythm: NSR Rate (Beats/Min): 80 [place]: Normal P-Wave: Present QRS: Normal ST-T: Normal QT: Normal Comparison: NA - No Prior EKG Course - Vital Signs Last Recorded V/S: Last Vital Signs Temp 98.5 F 01/14/21 11:49 Pulse 86 01/14/21 11:49 Resp 20 01/14/21 11:49 BP 137/87 01/14/21 11:49 Pulse Ox 98 01/14/21 11:49 - Orders/Labs/Meds Orders: Active Orders 24 hr Category Date Time Status EKG Documentation Completion [RC] STAT Care 01/14/21 12:29 Ordered Labs: Laboratory Tests 01/14/21 01/14/21 Range/Units 11:56 12:41 WBC 10.8 H (5.0-10.0) 10^3/uL RBC 5.14 (4.6-6.2) 10^6/uL Hgb 16.3 (14.0-18.0) g/dL Hct 47.6 (40.0-54.0) % MCV 92.6 (80-100) fL MCH 31.7 (27.0-34.0) pg MCHC 34.2 (33.0-35.0) g/dL Plt Count 145 L D (150-450) 10^3/uL Neut % (Auto) 75.5 H (42.2-75.2) % Lymph % (Auto) 9.7 L (20.5-50.1) % [place] % (Auto) 12.3 H (2-8) % Eos % (Auto) 1.8 (1.0-3.0) % Baso % (Auto) 0.7 (0.0-1.0) % Sodium 139 (136-145) mmol/L Potassium 3.9 (3.5-5.1) mmol/L Chloride 103 (98-107) mmol/L Carbon Dioxide 25 (21-32) mmol/L Anion Gap 14.9 H (7-13) mEq/L BUN 5 L (7-18) mg/dL Creatinine 1.00 (0.70-1.30) mg/dL Est Cr Clr Drug Dosing 107.97 mL/min Estimated GFR (MDRD) > 60 BUN/Creatinine Ratio 5.0 (No establ ref range) Glucose 119 H (70-99) mg/dL Calcium 9.1 (8.5-10.1) mg/dL Total Bilirubin 2.0 H (0.2-1.0) mg/dL AST 55 H (15-37) U/L ALT 36 (16-63) U/L Alkaline Phosphatase 112 (46-116) U/L Troponin I < 0.017 (0.000-0.056) ng/mL B-Natriuretic Peptide 31 (0-100) pg/ml Total Protein 7.6 (6.4-8.2) g/dL Albumin 3.5 (3.4-5.0) g/dL Globulin 4.1 Albumin/Globulin Ratio 0.9 Departure - Departure Time of Disposition: 13:26 Disposition: Home, Self-Care 01 Condition: Fair Clinical Impression: Muscle spasm, Cough Instructions: Cough, Adult, [id number] Forms: ED Department Discharge Care Plan Goals: The patient was advised of the examination, lab and EKG results during the visit. The patient was advised to stop taking the Lasix. The patient was given a script for Robitussin AC #100 mL to take 5-10 mL by mouth at bedtime as needed. If the patient has any additional symptoms or concerns, the patient should either visit his primary care facility or return to the emergency department. Sepsis Event Note (ED) - Evaluation Sepsis Screening Result: No Definite Risk - Focused Exam Vital Signs: Vital Signs Temp Pulse Resp BP Pulse Ox 01/14/21 11:49 98.5 F 86 20 137/87 98 - My Orders Last 24 Hours: My Active Orders 01/14/21 12:29 EKG Documentation Completion [RC] STAT - Assessment/Plan Last 24 Hours: My Active Orders 01/14/21 12:29 EKG Documentation Completion [RC] STAT
== END 2021-01-14 13:35 | disposition home or self-care (01) ==
LOC: DL.ED 11:36
DX: M62.838 Other muscle spasm (principal); R05 Cough; K21.9 Gastro-esophageal reflux disease without esophagitis; Z79.899 Other long term (current) drug therapy
CPT/HCPCS: 36415; 80053; 83880; 84484; 85025; 93005; 99284-25

== ENCOUNTER 2021-01-15 12:42 | Emergency (ER) | payer MEDICARE, MEDICAID ==
[2021-01-15 13:19] VITALS: BP 138/84; PULSE 94
--- NOTE | 2021-01-15 14:12 | EDM.PDOC ---
ED HPI GENERAL MEDICAL PROBLEM - General Chief Complaint: General Stated Complaint: PAIN BY RIB CAGE Time Seen by Provider: 01/15/21 13:30 Source of Information: Reports: Patient History Limitations: Reports: No Limitations - History of Present Illness INITIAL COMMENTS - FREE TEXT/NARRATIVE: ED with c/o pain below left rib cage, started shortly after lunch. Bm today. No chest pain, No nausea or vomiting. No diarrhea. Pain some improved from onset, At times feel like there is lump under ribs. Left Pain Score (Numeric/FACES): 2 - Related Data Allergies Allergy/AdvReac Type Severity Reaction Status Date / Time No Known Allergies Allergy Verified 01/15/21 13:18 Home Meds: Home Meds Omeprazole 20 mg PO DAILY 06/22/16 [History] Spironolactone [Aldactone] 25 mg PO DAILY 06/22/16 [History] Albuterol [Ventolin HFA] 2 puff INH Q6H PRN 08/22/17 [History] Budesonide/Formoterol [Symbicort 160-4.5 MCG] 2 puff INH BID 05/12/20 [History] Rifaximin [Xifaxan] 550 mg PO BID 05/12/20 [History] Acetaminophen [Tylenol] 650 mg PO Q4H PRN tablet 05/15/20 [Rx] Past Medical History HEENT History: Reports: Impaired Vision Other HEENT History: wears glasses Cardiovascular History: Reports: None Respiratory History: Reports: COPD Gastrointestinal History: Reports: Cirrhosis, GERD, Hepatitis Genitourinary History: Reports: Prostate Disorder Musculoskeletal History: Reports: Back Pain, Chronic Neurological History: Reports: Neuropathy, Peripheral Psychiatric History: Reports: Anxiety Endocrine/Metabolic History: Reports: None Hematologic History: Reports: Blood Transfusion(s) Immunologic History: Reports: None Oncologic (Cancer) History: Reports: None Dermatologic History: Reports: Cellulitis - Infectious Disease History Infectious Disease History: Reports: None - Past Surgical History Head Surgeries/Procedures: Reports: None HEENT Surgical History: Reports: None GI Surgical History: Reports: Appendectomy, Other (See Below) Other GI Surgeries/Procedures: Liver stent Male Surgical History: Reports: None Social & Family History - Family History Family Medical History: No Pertinent Family History - Tobacco Use Tobacco Use Status *Q: Never Tobacco User Second Hand Smoke Exposure: No - Caffeine Use Caffeine Use: Reports: Coffee - Recreational Drug Use Recreational Drug Type: Reports: Marijuana/Hashish - Living Situation & Occupation Living situation: Reports: with Family Occupation: Unemployed ED ROS GENERAL - Review of Systems Review Of Systems: Comprehensive ROS is negative, except as noted in HPI. ED EXAM, GENERAL - Physical Exam Exam: See Below Exam Limited By: No Limitations General Appearance: Alert, No Apparent Distress, Anxious Ears: Normal External Exam, Hearing Grossly Normal Nose: Normal Inspection Throat/Mouth: Normal Inspection Head: Atraumatic, Normocephalic Neck: Normal Inspection, Other Respiratory/Chest: No Respiratory Distress, Lungs Clear, Normal Breath Sounds Cardiovascular: Normal Peripheral Pulses, Regular Rate, Rhythm GI/Abdominal: Soft, No Distention, No Mass, Abnormal Bowel Sounds (hyperactive). No: Tender Back Exam: Full Range of Motion Extremities: Normal Inspection Neurological: Alert, Oriented Skin Exam: Warm, Dry, Intact, Normal Color Course - Vital Signs Last Recorded V/S: Last Vital Signs Temp 97.9 F 01/15/21 13:14 Pulse 94 01/15/21 13:14 Resp 20 01/15/21 13:14 BP 138/84 01/15/21 13:14 Pulse Ox 96 01/15/21 13:14 Departure - Departure Time of Disposition: 14:13 Disposition: Home, Self-Care 01 Condition: Good Clinical Impression: Epigastric pain - Discharge Information *PRESCRIPTION DRUG MONITORING PROGRAM REVIEWED*: No *COPY OF PRESCRIPTION DRUG MONITORING REPORT IN PATIENT [place]: No Instructions: Abdominal Pain, Adult, [id number] Forms: ED Department Discharge Additional Instructions: light bland diet tylenol 650mg every 4 hours as needed for discomfort clinic follow up tomorrow if increased symptoms, Sepsis Event Note (ED) - Evaluation Sepsis Screening Result: No Definite Risk - Focused Exam Vital Signs: Vital Signs Temp Pulse Resp BP Pulse Ox 01/15/21 13:14 97.9 F 94 20 138/84 96
--- NOTE | 2021-01-15 14:19 | CR ---
PROCEDURE INFORMATION: Exam: XR Abdomen Exam date and time: 01/15/2021 1:44 PM Age: 50 years old Clinical indication: Abdominal pain; Localized; Left upper quadrant (luq); Additional info: Luq abdominal pain TECHNIQUE: Imaging protocol: XR of the abdomen. Views: Frontal supine view of the abdomen. 1 View. COMPARISON: No relevant prior studies available. FINDINGS: Gastrointestinal tract: Multiple small air-fluid levels are present consistent with mild ileus. Vasculature: A stent is in place overlying the right upper quadrant. Bones/joints: The lumbar spine demonstrates mild degenerative changes at multiple levels. IMPRESSION: Multiple small air-fluid levels are present consistent with mild ileus.
== END 2021-01-15 14:18 | disposition home or self-care (01) ==
LOC: DL.ED 12:42
DX: R10.13 Epigastric pain (principal); J44.9 Chronic obstructive pulmonary disease, unspecified; K21.9 Gastro-esophageal reflux disease without esophagitis; G62.9 Polyneuropathy, unspecified; Z79.899 Other long term (current) drug therapy
CPT/HCPCS: 74018; 99284-25

== ENCOUNTER 2021-04-30 09:47 | Emergency (ER) | payer MEDICARE, MEDICAID ==
[2021-04-30] MEDS ORDERED: Sodium Chloride 0.9% 10 ML Syringe FLUSH PRN (09:54)
[2021-04-30 10:10] VITALS: BP 136/92; PULSE 84
--- NOTE | 2021-04-30 10:17 | EDM.PDOC ---
<Yeni Rouseian - Last Filed: 04/30/21 10:46> ED HPI GENERAL MEDICAL PROBLEM - General Chief Complaint: Chest Pain Stated Complaint: SENT FROM [facility] PAIN LEFT CHEST Time Seen by Provider: 04/30/21 10:00 - Related Data Allergies Allergy/AdvReac Type Severity Reaction Status Date / Time No Known Allergies Allergy Verified 01/15/21 13:18 Home Meds: Home Meds Omeprazole 20 mg PO DAILY 06/22/16 [History] Spironolactone [Aldactone] 25 mg PO DAILY 06/22/16 [History] Albuterol [Ventolin HFA] 2 puff INH Q6H PRN 08/22/17 [History] Budesonide/Formoterol [Symbicort 160-4.5 MCG] 2 puff INH BID 05/12/20 [History] Rifaximin [Xifaxan] 550 mg PO BID 05/12/20 [History] Acetaminophen [Tylenol] 650 mg PO Q4H PRN tablet 05/15/20 [Rx] Course - Radiology Interpretation Free Text/Narrative:: [facility] Final Radiology Report Call: [phone] assistance Online chat: [email or web address] Name: JENNA JOYA Age: 50Years M Date: 04/30/2021 SSN: -- : [id number] Study: CR CHEST 1V FRONTAL Requesting Physician: YENI ROUSE Images: 1 Addl Studies: Provided Clinical History: chest pain Contrast: Contrast Medium: Contrast Amount: Contrast Method: CONFIDENTIALITY STATEMENT This report is intended only for use by the referring physician, and only in accordance with law. If you received this in error, call [phone]. Page 1 of 1 PROCEDURE INFORMATION: Exam: XR Chest Exam date and time: 04/30/2021 10:16 AM Age: 50 years old Clinical indication: Pain; Other: Not specified; Additional info: Chest pain TECHNIQUE: Imaging protocol: XR of the chest. Views: 1 view. COMPARISON: CR Chest 1V Frontal 05/15/2020 10:31 AM FINDINGS: Lungs: No airspace disease or consolidation. Pleural spaces: Unremarkable. No pleural effusion. No pneumothorax. Heart/Mediastinum: Stable bilateral enlargement of the pulmonary arteries. Bones/joints: Unremarkable. IMPRESSION: Stable enlargement of pulmonary arteries consistent with pulmonary artery hypertension. Thank you for allowing us to participate in the care of your patient. Dictated and Authenticated by: Jenna Manning MD 04/30/2021 10:45 AM Central Time ([place] & [place]) Departure - Departure Disposition: Home, Self-Care 01 Clinical Impression: Pleurisy URI (upper respiratory infection) Qualifiers: URI type: unspecified viral URI Qualified Code(s): J06.9 - Acute upper respiratory infection, unspecified Instructions: Viral Respiratory Infection, [id number], Pleurisy, [id number] Forms: ED Department Discharge Additional Instructions: RX: Prednisone Use Ibuprofen for pain as needed. Follow up at your primary care facility if your symptoms do not improve in 10 days. <Ralph Dominguez - Last Filed: 04/30/21 10:54> ED HPI GENERAL MEDICAL PROBLEM - General Source of Information: Reports: Patient History Limitations: Reports: No Limitations - History of Present Illness INITIAL COMMENTS - FREE TEXT/NARRATIVE: 50 y/o M states he was stretching in his house and leaned backwards from a standing position and developed sharp 5/10 back pn as well as left sided chest pain. Started 0630. Pt states it feels like his lung is hurting. The CP pain is constant and worse with deep breathing, 5/10 and non radiating. Has had a cough for 3 days now. He was tested for COVID 2 days ago and it was negative. Also reports runny nose for 2 days but no fever. Hx of COPD, and liver cirrhosis. Is vully vaccinated with Moderna with the last shot in October. Denies yarbrough, vision prob, abd pn, db, nvd, pelvic pn, diff voiding, constipation, blood in stool, drugs, etoh. Onset: Today Duration: Hour(s): Location: Reports: Chest Quality: Reports: Sharp Severity: Moderate Worsens with: Reports: Breathing Past Medical History HEENT History: Reports: Impaired Vision Other HEENT History: wears glasses Cardiovascular History: Reports: None Respiratory History: Reports: COPD Gastrointestinal History: Reports: Cirrhosis, GERD, Hepatitis Genitourinary History: Reports: Prostate Disorder Musculoskeletal History: Reports: Back Pain, Chronic Neurological History: Reports: Neuropathy, Peripheral Psychiatric History: Reports: Anxiety Endocrine/Metabolic History: Reports: None Hematologic History: Reports: Blood Transfusion(s) Immunologic History: Reports: None Oncologic (Cancer) History: Reports: None Dermatologic History: Reports: Cellulitis - Infectious Disease History Infectious Disease History: Reports: None - Past Surgical History Head Surgeries/Procedures: Reports: None HEENT Surgical History: Reports: None GI Surgical History: Reports: Appendectomy, Other (See Below) Other GI Surgeries/Procedures: Liver stent Male Surgical History: Reports: None Social & Family History - Family History Family Medical History: No Pertinent Family History - Caffeine Use Caffeine Use: Reports: Coffee - Living Situation & Occupation Living situation: Reports: with Family Occupation: Unemployed ED ROS GENERAL - Review of Systems Review Of Systems: Comprehensive ROS is negative, except as noted in HPI. ED EXAM, GENERAL - Physical Exam Exam: See Below Exam Limited By: No Limitations General Appearance: Alert, No Apparent Distress Eye Exam: Bilateral Eye: PERRL Nose: Normal Inspection, Normal Mucosa, No Blood Throat/Mouth: Normal Inspection, Normal Lips, Normal Teeth, Normal Gums, Normal Oropharynx, Normal Voice, No Airway Compromise Head: Atraumatic, Normocephalic Neck: Supple, Non-Tender Respiratory/Chest: No Respiratory Distress, Lungs Clear, Normal Breath Sounds, Chest Non-Tender Cardiovascular: Regular Rate, Rhythm GI/Abdominal: Normal Bowel Sounds, Soft, Non-Tender (Male) Exam: Deferred Rectal (Males) Exam: Deferred Back Exam: Normal Inspection, Full Range of Motion Extremities: Normal Inspection, Normal Range of Motion, No Pedal Edema, Normal Capillary Refill Neurological: Alert, Oriented, CN II-XII Intact, Normal Cognition, Normal Gait, Normal Reflexes, No Motor/Sensory Deficits Psychiatric: Normal Affect, Normal Mood Skin Exam: Warm, Dry, Intact #1 Interpretation EKG Date: 04/30/21 Time: 09:56 Rhythm: Other (sinus rhythm) [place]: Normal P-Wave: Present QRS: Normal ST-T: Depressed QT: Normal EKG Interpretation Comments: sinus rhythm first degree block, normal axis, no ectopy or hypertrophy, 1mm st depression in v1-v3 which is similar to previous ekg, No st elevation. Course - Vital Signs Last Recorded V/S: Last Vital Signs Temp 98.1 F 04/30/21 10:07 Pulse 84 04/30/21 10:07 Resp 18 09/10/21 10:07 BP 136/92 H 04/30/21 10:07 Pulse Ox - Orders/Labs/Meds Orders: Active Orders 24 hr Category Date Time Status Peripheral IV Care [RC] . DIRECTED Care 04/30/21 09:55 Active Sodium Chloride 0.9% [Saline Flush] Med 04/30/21 09:54 Active 10 ml FLUSH ASDIRECTED PRN Peripheral IV Insertion Adult [OM.PC] Stat Oth 04/30/21 09:55 Ordered Medication Orders Sodium Chloride (Sodium Chloride 0.9% 10 Ml Syringe) 10 ml FLUSH ASDIRECTED PRN PRN Reason: Keep Vein Open Last Admin: 04/30/21 10:10 Dose: 10 ml Documented by: ANGEL Labs: Laboratory Tests 04/30/21 04/30/21 04/30/21 Range/Units 09:58 09:58 09:58 WBC 9.0 (5.0-10.0) 10^3/uL RBC 5.44 (4.6-6.2) 10^6/uL Hgb 17.2 (14.0-18.0) g/dL Hct 50.0 (40.0-54.0) % MCV 91.9 (80-100) fL MCH 31.6 (27.0-34.0) pg MCHC 34.4 (33.0-35.0) g/dL Plt Count 119 L (150-450) 10^3/uL Neut % (Auto) 68.6 (42.2-75.2) % Lymph % (Auto) 20.0 L (20.5-50.1) % [place] % (Auto) 9.3 H (2-8) % Eos % (Auto) 1.7 (1.0-3.0) % Baso % (Auto) 0.4 (0.0-1.0) % PT 11.4 (9.0-12.0) SEC INR 1.1 (0.9-1.2) APTT 25.9 (22.0-34.0) SEC Sodium 139 (136-145) mmol/L Potassium 3.7 (3.5-5.1) mmol/L Chloride 106 (98-107) mmol/L Carbon Dioxide 20 L (21-32) mmol/L Anion Gap 16.7 H (7-13) mEq/L BUN 8 (7-18) mg/dL Creatinine 0.82 (0.70-1.30) mg/dL Est Cr Clr Drug Dosing 120.92 mL/min Estimated GFR (MDRD) > 60 BUN/Creatinine Ratio 9.8 (No establ ref range) Glucose 107 H (70-99) mg/dL Calcium 8.7 (8.5-10.1) mg/dL Total Bilirubin 2.2 H (0.2-1.0) mg/dL AST 25 (15-37) U/L ALT 21 (16-63) U/L Alkaline Phosphatase 121 H (46-116) U/L Troponin I High Sens 5 (<=76) pg/mL B-Natriuretic Peptide 25 (0-100) pg/ml Total Protein 7.5 (6.4-8.2) g/dL Albumin 3.8 (3.4-5.0) g/dL Globulin 3.7 Albumin/Globulin Ratio 1.0 Amylase 49 (25-115) U/L Lipase 64 L (73-393) U/L Ethyl Alcohol < 3 (0) mg/dL Meds: Medications Generic Name Dose Route Start Last Admin Trade Name Freq PRN Reason Stop Dose Admin Sodium Chloride 10 ml 04/30/21 09:54 04/30/21 10:10 Sodium Chloride 0.9% 10 Ml Syringe FLUSH 10 ml ASDIRECTED PRN Administration Keep Vein Open - Re-Assessments/Exams Free Text/Narrative Re-Assessment/Exam: 04/30/21 10:47 Pt resting comfortably in bed and is in no distress. Discussed exam, labs, ekg, and CXR with pt and explained that given the neg findings in his workup he likely has a viral URI with associated pleurisy Departure - Departure Time of Disposition: 10:53 Condition: Good Sepsis Event Note (ED) - Focused Exam Vital Signs: Vital Signs Temp Pulse Resp BP 04/30/21 10:07 98.1 F 84 18 136/92 H
[2021-04-30 10:26] LABS: ANION GAP 16.7 mEq/L (7-13); CHLORIDE,CL 106 mmol/L (98-107); SODIUM,NA 139 mmol/L (136-145)
[2021-04-30 10:32] LABS: PTT,PARTIAL THROMBOPLSTIN TIME 25.9 SEC (22.0-34.0)
--- NOTE | 2021-04-30 10:46 | CR ---
PROCEDURE INFORMATION: Exam: XR Chest Exam date and time: 04/30/2021 10:16 AM Age: 50 years old Clinical indication: Pain; Other: Not specified; Additional info: Chest pain TECHNIQUE: Imaging protocol: XR of the chest. Views: 1 view. COMPARISON: CR Chest 1V Frontal 05/15/2020 10:31 AM FINDINGS: Lungs: No airspace disease or consolidation. Pleural spaces: Unremarkable. No pleural effusion. No pneumothorax. Heart/Mediastinum: Stable bilateral enlargement of the pulmonary arteries. Bones/joints: Unremarkable. IMPRESSION: Stable enlargement of pulmonary arteries consistent with pulmonary artery hypertension.
== END 2021-04-30 11:00 | disposition home or self-care (01) ==
LOC: DL.ED 09:47
DX: R09.1 Pleurisy (principal); J06.9 Acute upper respiratory infection, unspecified; J44.9 Chronic obstructive pulmonary disease, unspecified; K21.9 Gastro-esophageal reflux disease without esophagitis; I44.0 Atrioventricular block, first degree; Z79.899 Other long term (current) drug therapy
CPT/HCPCS: 36415; 71045; 80053; 80307; 82150; 83690; 83880; 84484; 85025; 85610; 85730; 93005; 99284-25

== ENCOUNTER 2021-08-24 17:16 | Emergency (ER) | payer MEDICARE, MEDICAID | END 2021-08-24 19:15 | disposition left against medical advice (07) | LOC: DL.ED 17:16 | DX: Z53.21 Procedure and treatment not carried out due to patient leaving prior to being seen by health care provider (principal) ==

== ENCOUNTER 2021-12-13 20:26 | Emergency (ER) | payer MEDICARE, MEDICAID ==
[2021-12-13 22:20] LABS: ANION GAP 13.3 mEq/L (7-13); CHLORIDE,CL 108 mmol/L (98-107); SODIUM,NA 144 mmol/L (136-145)
[2021-12-13 22:34] VITALS: BP 133/83; PULSE 69
== END 2021-12-13 23:55 | disposition home or self-care (01) ==
LOC: DL.ED 20:26
DX: R07.89 Other chest pain (principal); Z44.9 Encounter for fitting and adjustment of unspecified external prosthetic device; Z79.899 Other long term (current) drug therapy
CPT/HCPCS: 36415; 71045; 80053; 84484; 85025; 85379; 99282; 99285-25

== ENCOUNTER 2022-03-14 21:35 | Inpatient (IN) | payer MEDICARE, MEDICAID ==
[2022-03-14] MEDS ORDERED: Piperacillin/Tazobactam 3.375 GM in Sodium Chloride 0.9% 100 ML IV ONE (21:59)
[2022-03-14 22:50] LABS: ANION GAP 15.6 mEq/L (7-13); CHLORIDE,CL 108 mmol/L (98-107); SODIUM,NA 141 mmol/L (136-145)
[2022-03-14 22:53] LABS: ESTIMATED GFR 81 mL/min (>=60)
[2022-03-15] MEDS ORDERED: Iopamidol 612 MG/ML 100 ML Bottle IVPUSH ONE (00:48)
[2022-03-15] MEDS: Acetaminophen 325 MG Tab PO ONE ×2 (01:51→01:53)
[2022-03-15] MEDS ORDERED: Sodium Chloride 0.9% 1,000 ML IV ONE (03:35)
[2022-03-15] MEDS ORDERED: Lactulose Soln 10 GM/15 ML 30 ML UD Cup PO ONE (05:23)
[2022-03-15 06:03] LABS: ANION GAP 12.9 mEq/L (7-13)
[2022-03-15] MEDS ORDERED: Ondansetron 4 MG/2 ML SDV IVPUSH ONE (06:39)
[2022-03-15] MEDS ORDERED: HYDROmorphone 0.5 MG/0.5 ML Syringe IVPUSH PRN (09:20)
[2022-03-15] MEDS ORDERED: Ondansetron 4 MG/2 ML SDV IVPUSH PRN (09:20)
[2022-03-15] MEDS ORDERED: Albuterol/Ipratropium 3.0-0.5 MG/3 ML Neb Soln NEB PRN (09:20)
[2022-03-15] MEDS ORDERED: SODIUM CHLORIDE 0.9% IV SCH (09:45)
[2022-03-15] MEDS ORDERED: VANCOMYCIN IV SCH (09:45)
[2022-03-15] MEDS: Piperacillin/Tazobactam 3.375 GM in Sodium Chloride 0.9% 100 ML IV SCH ×3 (10:24→21:43)
[2022-03-15 11:19] LABS: AMPHETAMINES,URINE NEGATIVE (NEGATIVE); BARBITURATES,URINE NEGATIVE (NEGATIVE); BENZODIAZEPINE,URINE NEGATIVE (NEGATIVE); MDMA (ECSTASY), URINE NEGATIVE (NEGATIVE); METHADONE,URINE NEGATIVE (NEGATIVE); METHAMPHETAMINES,URINE NEGATIVE (NEGATIVE); OPIATES,URINE NEGATIVE (NEGATIVE); PHENCYCLIDINE,URINE NEGATIVE (NEGATIVE); TCA,URINE NEGATIVE (NEGATIVE)
[2022-03-15 11:20] LABS: OXYCODONE,URINE NEGATIVE (NEGATIVE)
[2022-03-15] MEDS: Acetaminophen/HYDROcodone 325-5 MG Tab PO PRN ×2 (11:22→22:03)
[2022-03-15] MEDS: Lactulose Soln 10 GM/15 ML 30 ML UD Cup PO SCH ×2 (14:12→21:36)
[2022-03-15] MEDS: Acetaminophen 325 MG Tab PO PRN (16:49)
[2022-03-15] MEDS ORDERED: Fluconazole/Normal Saline 200 MG in Premix Bag 1 BAG IV SCH (17:00)
[2022-03-15] MEDS ORDERED: Midodrine 2.5 MG Tab PO PRN (17:28)
[2022-03-15] MEDS: Saccharomyces Boulardii (Probiotic) 250 MG Cap PO SCH (21:33)
[2022-03-15] MEDS: Rifaximin 550 MG Tab PO SCH (21:33)
[2022-03-15] MEDS: Nystatin Topical Powder 30 GM Bottle TOP SCH (21:34)
[2022-03-15] MEDS: Formoterol/Mometasone 200-5 MCG 8.8 GM Inhaler IH SCH (21:35)
[2022-03-15] MEDS: Sodium Chloride 0.9% 10 ML Syringe FLUSH PRN ×2 (21:43→21:49)
[2022-03-16] MEDS: Piperacillin/Tazobactam 3.375 GM in Sodium Chloride 0.9% 100 ML IV SCH ×4 (04:17→21:28)
[2022-03-16] MEDS: Sodium Chloride 0.9% 10 ML Syringe FLUSH PRN ×4 (04:17→21:32)
[2022-03-16] MEDS: Acetaminophen/HYDROcodone 325-5 MG Tab PO PRN ×2 (04:28→21:38)
[2022-03-16] MEDS: Omeprazole 20 MG Cap.CR PO SCH (05:07)
[2022-03-16 07:30] LABS: ANION GAP 13.7 mEq/L (7-13)
[2022-03-16] MEDS: Rifaximin 550 MG Tab PO SCH ×2 (09:09→21:22)
[2022-03-16] MEDS: Lactulose Soln 10 GM/15 ML 30 ML UD Cup PO SCH ×3 (09:09→21:22)
[2022-03-16] MEDS: Tamsulosin 0.4 MG Cap.ER PO SCH (09:09)
[2022-03-16] MEDS: Furosemide 40 MG Tab PO SCH (09:09)
[2022-03-16] MEDS: Saccharomyces Boulardii (Probiotic) 250 MG Cap PO SCH ×2 (09:09→21:22)
[2022-03-16] MEDS: Spironolactone 25 MG Tab PO SCH (09:09)
[2022-03-16] MEDS: Formoterol/Mometasone 200-5 MCG 8.8 GM Inhaler IH SCH ×2 (09:13→21:23)
[2022-03-16] MEDS: Nystatin Topical Powder 30 GM Bottle TOP SCH ×2 (09:14→21:23)
[2022-03-16] MEDS ORDERED: Magnesium Sulfate/Water 2 GM in Premix Bag 1 BAG IV ONE (11:43)
[2022-03-16] MEDS: Fluconazole/Normal Saline 200 MG in Premix Bag 1 BAG IV SCH (14:32)
[2022-03-16] MEDS: Simethicone 80 MG Tab.Chew PO PRN (21:22)
[2022-03-17] MEDS: Piperacillin/Tazobactam 3.375 GM in Sodium Chloride 0.9% 100 ML IV SCH ×4 (03:51→21:34)
[2022-03-17] MEDS: Sodium Chloride 0.9% 10 ML Syringe FLUSH PRN ×4 (03:51→21:34)
[2022-03-17] MEDS: Omeprazole 20 MG Cap.CR PO SCH (05:14)
[2022-03-17 07:11] LABS: ANION GAP 13.7 mEq/L (7-13)
[2022-03-17] MEDS: Rifaximin 550 MG Tab PO SCH ×2 (10:18→21:26)
[2022-03-17] MEDS: Furosemide 40 MG Tab PO SCH (10:18)
[2022-03-17] MEDS: Saccharomyces Boulardii (Probiotic) 250 MG Cap PO SCH ×2 (10:18→21:26)
[2022-03-17] MEDS: Acetaminophen/HYDROcodone 325-5 MG Tab PO PRN ×2 (10:18→21:47)
[2022-03-17] MEDS: Spironolactone 25 MG Tab PO SCH (10:18)
[2022-03-17] MEDS: Tamsulosin 0.4 MG Cap.ER PO SCH (10:18)
[2022-03-17] MEDS: Lactulose Soln 10 GM/15 ML 30 ML UD Cup PO SCH ×3 (10:20→21:26)
[2022-03-17] MEDS: Formoterol/Mometasone 200-5 MCG 8.8 GM Inhaler IH SCH ×2 (10:22→21:27)
[2022-03-17] MEDS: Nystatin Topical Powder 30 GM Bottle TOP SCH ×2 (10:24→21:31)
[2022-03-17] MEDS: Fluconazole/Normal Saline 200 MG in Premix Bag 1 BAG IV SCH (14:59)
[2022-03-18] MEDS: Sodium Chloride 0.9% 10 ML Syringe FLUSH PRN ×2 (03:24→21:21)
[2022-03-18] MEDS: Piperacillin/Tazobactam 3.375 GM in Sodium Chloride 0.9% 100 ML IV SCH ×4 (03:25→21:18)
[2022-03-18] MEDS: Omeprazole 20 MG Cap.CR PO SCH (06:24)
[2022-03-18] MEDS: Acetaminophen/HYDROcodone 325-5 MG Tab PO PRN ×2 (06:31→21:15)
[2022-03-18 07:09] LABS: ANION GAP 13.4 mEq/L (7-13)
[2022-03-18] MEDS ORDERED: Potassium Chloride 10 MEQ Tab.ER PO ONE (07:55)
[2022-03-18] MEDS ORDERED: Magnesium Sulfate/Water 2 GM in Premix Bag 1 BAG IV ONE ×2 (07:56→10:30)
[2022-03-18] MEDS: Saccharomyces Boulardii (Probiotic) 250 MG Cap PO SCH ×2 (09:40→21:14)
[2022-03-18] MEDS: Spironolactone 25 MG Tab PO SCH (09:40)
[2022-03-18] MEDS: Rifaximin 550 MG Tab PO SCH ×2 (09:40→21:15)
[2022-03-18] MEDS: Tamsulosin 0.4 MG Cap.ER PO SCH (09:40)
[2022-03-18] MEDS: Furosemide 40 MG Tab PO SCH (09:41)
[2022-03-18] MEDS: Lactulose Soln 10 GM/15 ML 30 ML UD Cup PO SCH ×3 (09:42→21:13)
[2022-03-18] MEDS: Formoterol/Mometasone 200-5 MCG 8.8 GM Inhaler IH SCH ×2 (09:42→21:14)
[2022-03-18] MEDS: Nystatin Topical Powder 30 GM Bottle TOP SCH ×2 (09:46→21:24)
[2022-03-18] MEDS: Simethicone 80 MG Tab.Chew PO PRN (10:27)
[2022-03-18] MEDS: Potassium Chloride 10 MEQ Tab.ER PO SCH (21:16)
[2022-03-19] MEDS: Piperacillin/Tazobactam 3.375 GM in Sodium Chloride 0.9% 100 ML IV SCH ×4 (03:50→22:11)
[2022-03-19] MEDS: Omeprazole 20 MG Cap.CR PO SCH (05:53)
[2022-03-19] MEDS: Saccharomyces Boulardii (Probiotic) 250 MG Cap PO SCH ×2 (08:12→20:37)
[2022-03-19] MEDS: Tamsulosin 0.4 MG Cap.ER PO SCH (08:12)
[2022-03-19] MEDS: Rifaximin 550 MG Tab PO SCH ×2 (08:12→20:37)
[2022-03-19] MEDS: Spironolactone 25 MG Tab PO SCH (08:12)
[2022-03-19] MEDS: Lactulose Soln 10 GM/15 ML 30 ML UD Cup PO SCH ×3 (08:12→20:38)
[2022-03-19] MEDS: Furosemide 40 MG Tab PO SCH (08:12)
[2022-03-19] MEDS: Nystatin Topical Powder 30 GM Bottle TOP SCH ×2 (08:14→20:39)
[2022-03-19] MEDS: Formoterol/Mometasone 200-5 MCG 8.8 GM Inhaler IH SCH ×2 (08:14→20:36)
[2022-03-19] MEDS: Bacitracin/Neomycin/Polymyxin B Oint 28.4 GM Tube TOP SCH ×2 (11:07→20:39)
[2022-03-19] MEDS: Fluconazole 100 MG Tab PO SCH (14:52)
[2022-03-19] MEDS: Potassium Chloride 10 MEQ Tab.ER PO SCH (20:38)
[2022-03-20] MEDS: Piperacillin/Tazobactam 3.375 GM in Sodium Chloride 0.9% 100 ML IV SCH ×4 (03:40→21:24)
[2022-03-20] MEDS: Omeprazole 20 MG Cap.CR PO SCH (05:37)
[2022-03-20] MEDS: Furosemide 40 MG Tab PO SCH (08:09)
[2022-03-20] MEDS: Rifaximin 550 MG Tab PO SCH ×2 (08:09→20:30)
[2022-03-20] MEDS: Saccharomyces Boulardii (Probiotic) 250 MG Cap PO SCH ×2 (08:09→20:30)
[2022-03-20] MEDS: Tamsulosin 0.4 MG Cap.ER PO SCH (08:09)
[2022-03-20] MEDS: Spironolactone 25 MG Tab PO SCH (08:09)
[2022-03-20] MEDS: Fluconazole 100 MG Tab PO SCH (08:09)
[2022-03-20] MEDS: Nystatin Topical Powder 30 GM Bottle TOP SCH ×2 (08:11→21:00)
[2022-03-20] MEDS: Formoterol/Mometasone 200-5 MCG 8.8 GM Inhaler IH SCH ×2 (08:11→20:40)
[2022-03-20] MEDS: Bacitracin/Neomycin/Polymyxin B Oint 28.4 GM Tube TOP SCH ×2 (08:11→23:07)
[2022-03-20] MEDS: Lactulose Soln 10 GM/15 ML 30 ML UD Cup PO SCH ×3 (08:12→20:32)
[2022-03-20] MEDS: Acetaminophen/HYDROcodone 325-5 MG Tab PO PRN (19:09)
[2022-03-20] MEDS: Acetaminophen 325 MG Tab PO PRN (20:31)
[2022-03-20] MEDS: Potassium Chloride 10 MEQ Tab.ER PO SCH (20:31)
[2022-03-21] MEDS: Acetaminophen/HYDROcodone 325-5 MG Tab PO PRN (04:35)
[2022-03-21] MEDS: Piperacillin/Tazobactam 3.375 GM in Sodium Chloride 0.9% 100 ML IV SCH ×2 (04:36→10:31)
[2022-03-21] MEDS: Omeprazole 20 MG Cap.CR PO SCH (05:33)
[2022-03-21 07:18] LABS: ANION GAP 13.3 mEq/L (7-13)
[2022-03-21 08:19] VITALS: BP 114/63; PULSE 75
[2022-03-21] MEDS: Spironolactone 25 MG Tab PO SCH (08:49)
[2022-03-21] MEDS: Lactulose Soln 10 GM/15 ML 30 ML UD Cup PO SCH (08:50)
[2022-03-21] MEDS: Tamsulosin 0.4 MG Cap.ER PO SCH (08:52)
[2022-03-21] MEDS: Saccharomyces Boulardii (Probiotic) 250 MG Cap PO SCH (08:52)
[2022-03-21] MEDS: Fluconazole 100 MG Tab PO SCH (08:53)
[2022-03-21] MEDS: Rifaximin 550 MG Tab PO SCH (08:53)
[2022-03-21] MEDS: Furosemide 40 MG Tab PO SCH (08:55)
[2022-03-21] MEDS: Formoterol/Mometasone 200-5 MCG 8.8 GM Inhaler IH SCH (08:58)
[2022-03-21] MEDS: Nystatin Topical Powder 30 GM Bottle TOP SCH (10:35)
[2022-03-21] MEDS: Bacitracin/Neomycin/Polymyxin B Oint 28.4 GM Tube TOP SCH (10:37)
== END 2022-03-21 12:10 | disposition home or self-care (01) | DRG 872 ==
LOC: DL.ED 21:35 → DL.MS 03-15 07:36 → DL.ED 03-15 08:03 → DL.MS 03-15 08:14 → UNDOADMIN 03-15 08:14
PROVIDERS: ADMIT Internal Medicine; ATTEND Internal Medicine
DX: A41.01 Sepsis due to Methicillin susceptible Staphylococcus aureus (principal); L03.116 Cellulitis of left lower limb; E72.20 Disorder of urea cycle metabolism, unspecified; D69.6 Thrombocytopenia, unspecified; K74.60 Unspecified cirrhosis of liver; F10.288 Alcohol dependence with other alcohol-induced disorder; N42.9 Disorder of prostate, unspecified; B35.1 Tinea unguium; D69.59 Other secondary thrombocytopenia; R73.9 Hyperglycemia, unspecified; Z20.822 Contact with and (suspected) exposure to COVID-19; Z86.16 Personal history of COVID-19; K21.9 Gastro-esophageal reflux disease without esophagitis; K70.30 Alcoholic cirrhosis of liver without ascites; G25.81 Restless legs syndrome; E66.9 Obesity, unspecified; M54.9 Dorsalgia, unspecified; G89.29 Other chronic pain; J44.9 Chronic obstructive pulmonary disease, unspecified; H54.7 Unspecified visual loss; G62.9 Polyneuropathy, unspecified; F41.9 Anxiety disorder, unspecified; Z79.51 Long term (current) use of inhaled steroids; Z79.899 Other long term (current) drug therapy; Z90.49 Acquired absence of other specified parts of digestive tract; Z68.30 Body mass index [BMI] 30.0-30.9, adult
CPT/HCPCS: 36415 ×2; 71045; 74177; 80053 ×2; 81003; 82140; 82150; 82947; 83605 ×2; 83690; 83880; 84484 ×2; 85025 ×2; 85379; 85610; 86140; 87040 ×2; 87077; 87186; 93005 ×2; 96361; 96365; 96366; 96367; 96375; 99285; A9270 ×2; J2405; J2543; J3370; J7030; J7050; Q9967; U0002; 80048; 80202; 80305-QW; 83735; 93010; 97161-GP; 97165-GO; 99222; 99232; 99239; 99284; J1450; J3475; J3490

== ENCOUNTER 2022-04-22 12:12 | Inpatient (IN) | payer MEDICARE, MEDICAID ==
[2022-04-22] MEDS ORDERED: Bisacodyl 5 MG Tab PO PRN (14:08)
[2022-04-22] MEDS ORDERED: Sodium Chloride 0.9% 10 ML Syringe FLUSH PRN (14:08)
[2022-04-22] MEDS ORDERED: Ondansetron 4 MG Tab.DIS PO PRN (14:08)
[2022-04-22] MEDS ORDERED: Docusate Sodium 100 MG Cap PO PRN (14:08)
[2022-04-22] MEDS ORDERED: Albuterol 6.7 GM Inhaler INH PRN (14:14)
[2022-04-22 14:57] LABS: CHLORIDE,CL 107 mmol/L (98-107); SODIUM,NA 140 mmol/L (136-145)
[2022-04-22 15:02] LABS: ESTIMATED GFR 97 mL/min (>=60)
[2022-04-22] MEDS: Lactulose Soln 10 GM/15 ML 30 ML UD Cup PO SCH ×2 (15:12→22:58)
[2022-04-22] MEDS: Fluconazole/Normal Saline 100 MG in Premix Bag 1 BAG IV SCH (15:14)
[2022-04-22] MEDS: Piperacillin/Tazobactam 3.375 GM in Sodium Chloride 0.9% 100 ML IV SCH ×2 (17:39→23:05)
[2022-04-22] MEDS: Rifaximin 550 MG Tab PO SCH (22:55)
[2022-04-22] MEDS: Formoterol/Mometasone 200-5 MCG 8.8 GM Inhaler IH SCH (22:55)
[2022-04-22] MEDS: Nystatin Ointment 15 GM Tube TOP SCH (22:59)
[2022-04-22] MEDS: Sodium Chloride 0.9% 10 ML Syringe FLUSH SCH (23:05)
[2022-04-22] MEDS: Heparin Sodium 5,000 Units/ML Vial SUBCUT SCH (23:16)
[2022-04-23] MEDS: Omeprazole 20 MG Cap.CR PO SCH (05:54)
[2022-04-23] MEDS: Piperacillin/Tazobactam 3.375 GM in Sodium Chloride 0.9% 100 ML IV SCH ×3 (05:54→17:19)
[2022-04-23] MEDS: Heparin Sodium 5,000 Units/ML Vial SUBCUT SCH ×3 (06:01→21:03)
[2022-04-23] MEDS: Rifaximin 550 MG Tab PO SCH ×2 (08:23→21:03)
[2022-04-23] MEDS: Lactulose Soln 10 GM/15 ML 30 ML UD Cup PO SCH ×3 (08:23→20:59)
[2022-04-23] MEDS: Tamsulosin 0.4 MG Cap.ER PO SCH (08:23)
[2022-04-23] MEDS: Spironolactone 25 MG Tab PO SCH (08:23)
[2022-04-23] MEDS: Nystatin Ointment 15 GM Tube TOP SCH ×3 (09:35→21:01)
[2022-04-23] MEDS: Formoterol/Mometasone 200-5 MCG 8.8 GM Inhaler IH SCH ×2 (09:35→21:00)
[2022-04-23] MEDS: Sodium Chloride 0.9% 10 ML Syringe FLUSH SCH ×2 (12:05→21:03)
[2022-04-23] MEDS: Fluconazole/Normal Saline 100 MG in Premix Bag 1 BAG IV SCH (14:45)
[2022-04-24] MEDS: Piperacillin/Tazobactam 3.375 GM in Sodium Chloride 0.9% 100 ML IV SCH ×2 (00:08→05:28)
[2022-04-24] MEDS: Heparin Sodium 5,000 Units/ML Vial SUBCUT SCH (05:28)
[2022-04-24] MEDS: Omeprazole 20 MG Cap.CR PO SCH (05:28)
[2022-04-24 08:06] VITALS: BP 115/73; PULSE 77
[2022-04-24] MEDS: Formoterol/Mometasone 200-5 MCG 8.8 GM Inhaler IH SCH (08:42)
[2022-04-24] MEDS: Tamsulosin 0.4 MG Cap.ER PO SCH (08:43)
[2022-04-24] MEDS: Nystatin Ointment 15 GM Tube TOP SCH (08:43)
[2022-04-24] MEDS: Sodium Chloride 0.9% 10 ML Syringe FLUSH SCH (08:43)
[2022-04-24] MEDS: Spironolactone 25 MG Tab PO SCH (08:43)
[2022-04-24] MEDS: Lactulose Soln 10 GM/15 ML 30 ML UD Cup PO SCH (08:43)
[2022-04-24] MEDS: Rifaximin 550 MG Tab PO SCH (08:52)
[2022-04-24] MEDS ORDERED: Clindamycin HCl 150 MG Cap ONE (09:09)
[2022-04-24] MEDS ORDERED: Clindamycin HCl 150 MG Cap PO ONE (10:31)
== END 2022-04-24 10:32 | disposition home or self-care (01) | DRG 603 ==
LOC: DL.MS 12:12
PROVIDERS: ADMIT Hospitalist; ATTEND Hospitalist
DX: L03.116 Cellulitis of left lower limb (principal); F10.288 Alcohol dependence with other alcohol-induced disorder; K70.9 Alcoholic liver disease, unspecified; B35.3 Tinea pedis; J44.9 Chronic obstructive pulmonary disease, unspecified; Z20.822 Contact with and (suspected) exposure to COVID-19; K21.9 Gastro-esophageal reflux disease without esophagitis; M54.9 Dorsalgia, unspecified; G89.29 Other chronic pain; G62.9 Polyneuropathy, unspecified; H54.7 Unspecified visual loss; F41.9 Anxiety disorder, unspecified; Z79.899 Other long term (current) drug therapy; Z79.51 Long term (current) use of inhaled steroids; Z28.82 Immunization not carried out because of caregiver refusal
CPT/HCPCS: 36415; 73630-LT; 80048; 85025; 86140; 87040; 87070; 87077; 87186; 99222; 99231; 99239; A9270-GY; J1450; J1644; J2543; J3490; U0002

== ENCOUNTER 2024-11-14 23:05 | Emergency (ER) | payer MEDICARE, MEDICAID ==
[2024-11-14 23:10] VITALS: BP 145/102; PULSE 110
[2024-11-14 23:34] LABS: HEMATOCRIT 48.1 % (40.0-54.0); HEMOGLOBIN 15.6 g/dL (14.0-18.0); MEAN CORPUSCULAR HEMOGLOBIN 30.3 pg (27.0-34.0); MEAN CORPUSCULAR HGB CONC 32.4 g/dL (33.0-35.0); MEAN CORPUSCULAR VOLUME 93.4 fL (80-100); PLATELET COUNT,PLT 171 10^3/uL (150-450); RED BLOOD CELL COUNT 5.15 10^6/uL (4.6-6.2); WHITE BLOOD CELL COUNT,WBC 17.8 10^3/uL (5.0-10.0)
[2024-11-14 23:44] LABS: BASOPHILS PERCENT AUTO 0.2 % (0.0-1.0); LYMPHOCYTES PERCENT AUTO 11.4 % (20.5-50.1); MONOCYTES PERCENT AUTO 6.2 % (2-8); NEUTROPHILS PERCENT AUTO 81.2 % (42.2-75.2)
[2024-11-14 23:45] LABS: A/G RATIO 0.8; ALANINE AMINOTRANSFERASE,ALT 16 U/L (16-63); ALBUMIN 3.6 g/dL (3.4-5.0); ALKALINE PHOSPHATASE 144 U/L (46-116); ANION GAP 15.4 mEq/L (7-13); ASPARTATE AMNIOTRANSFERASE,AST 14 U/L (15-37); BILIRUBIN TOTAL 0.9 mg/dL (0.2-1.0); BLOOD UREA NITROGEN,BUN 8 mg/dL (7-18); BUN/CREATININE RATIO 7.5 (No establ ref range); CALCIUM 9.1 mg/dL (8.5-10.1); CARBON DIOXIDE,CO2 23 mmol/L (21-32); CHLORIDE,CL 106 mmol/L (98-107); CREATININE 1.06 mg/dL (0.70-1.30); EST CRCL DRUG DOSING (CG) 97.43 mL/min; GLUCOSE RANDOM 86 mg/dL (70-99); MAGNESIUM 1.5 mg/dL (1.8-2.4); POTASSIUM,K 3.4 mmol/L (3.5-5.1); PROTEIN TOTAL,TP 7.9 g/dL (6.4-8.2); SODIUM,NA 141 mmol/L (136-145)
[2024-11-14 23:47] LABS: AMPHETAMINES,URINE NEGATIVE (NEGATIVE); BARBITURATES,URINE NEGATIVE (NEGATIVE); BENZODIAZEPINE,URINE NEGATIVE (NEGATIVE); MDMA (ECSTASY), URINE NEGATIVE (NEGATIVE); METHADONE,URINE NEGATIVE (NEGATIVE); METHAMPHETAMINES,URINE NEGATIVE (NEGATIVE); OPIATES,URINE NEGATIVE (NEGATIVE); OXYCODONE,URINE NEGATIVE (NEGATIVE); PHENCYCLIDINE,URINE NEGATIVE (NEGATIVE); TCA,URINE NEGATIVE (NEGATIVE)
[2024-11-14 23:49] LABS: APPEARANCE,URINE CLEAR (CLEAR); BILIRUBIN,URINE NEGATIVE (NEGATIVE); COLOR,URINE YELLOW (YELLOW); GLUCOSE,URINE NEGATIVE (NEGATIVE); KETONES,URINE NEGATIVE (NEGATIVE); LEUKOCYTE ESTERASE,URINE NEGATIVE (NEGATIVE); NITRITE,URINE NEGATIVE (NEGATIVE); OCCULT BLOOD,URINE NEGATIVE (NEGATIVE); PH,URINE 6.5 (5.0-9.0); PROTEIN,URINE NEGATIVE (NEGATIVE); UROBILINOGEN,URINE 0.2 mg/dL (0.2-1.0)
[2024-11-14 23:59] LABS: LACTIC ACID 4.3 mmol/L (0.4-2.0)
[2024-11-15] LABS: ESTIMATED GFR 84 mL/min (>=60)
[2024-11-15 00:06] LABS: ETHANOL BLOOD MEDICAL < 3 mg/dL (0)
[2024-11-15] MEDS: cefTRIAXone 2 GM Vial IVPUSH ONE (00:20)
[2024-11-15 00:35] LABS: EOSINOPHILS PERCENT MAN 2 % (1-3); LYMPHOCYTES PERCENT MAN 8 % (20-50); MONOCYTES PERCENT MAN 4 % (2-8); SEG NEUTROPHILS PERCENT MAN 86 % (42-75)
[2024-11-15] MEDS: Sodium Chloride 0.9% 1,000 ML IV ONE (01:09)
[2024-11-15] MEDS: Ibuprofen 600 MG Tab PO ONE (01:35)
[2024-11-15] MEDS: Magnesium Sulf/Wat 2 GM/50 mL 2 GM in Premix Bag 1 BAG IV ONE (02:25)
== END 2024-11-15 02:49 ==
LOC: DL.ED 23:05
DX: A41.9 Sepsis, unspecified organism (principal); L03.116 Cellulitis of left lower limb; Z79.899 Other long term (current) drug therapy; Z86.16 Personal history of COVID-19; Z90.49 Acquired absence of other specified parts of digestive tract
CPT/HCPCS: 36415; 71045; 73610; 80053; 80305; 80307; 81003; 83605; 83735; 85025; 87040; 87077; 96361; 96365; 96375; 99285; A9270; J0696; J3475; J7030